=== PATIENT | male | born 1995 | race Hispanic/Latino ===

== ENCOUNTER 2017-10-31 14:52 | Outpatient (CLI) | payer OTHER | END 2017-10-31 14:53 | disposition home or self-care (01) | LOC: BICRAD 14:52 | PROVIDERS: ATTEND Internal Medicine | DX: J18.9 Pneumonia, unspecified organism (principal) | CPT/HCPCS: 36415; 71046; 80053; 81003; 85025 ==

== ENCOUNTER 2019-01-31 15:06 | Observation (INO) | payer OTHER ==
[2019-01-31] MEDS ORDERED: Lorazepam 2 MG/ML VIAL ONE (15:11)
[2019-01-31] MEDS ORDERED: cefTRIAXone\\ROCEPHIN 1 GM VIAL ONE (15:34)
[2019-01-31 15:40] LABS: Actual Bicarbonate (HCO3a) 20.1 mEq/L (22-28); Analyzer IN Cardio ER; Base Excess (BEa) -6.9 mEq/L (-2.0 to +3.0); CO2 Tension 46.2 mmHg (35.0-45.0); Calcium, Ionized 1.17 mmol/L (1.12-1.30); Carboxyhemoglobin (COHb) 0.4 gm% (0.0-3.0); Hemoglobin (Hb) 13.8 g/dL (14.0-18.0); O2 Tension (PaO2) 82.5 mmHg (80.0-100.0); Potassium - ABG Lab 3.72 mmol/L (3.70-5.30); Puncture Site RR; pH, Arterial 7.26 (7.35-7.45)
[2019-01-31 15:52] LABS: #Basophils 0.1 thou/uL (0.0-0.2); #Eosinphils 0.1 thou/uL (0.0-0.7); #Lymphocytes 1.4 thou/uL (1.20-3.40); #Monocytes 0.4 thou/uL (0.11-0.59); #Neutrophils 6.2 thou/uL (1.40-6.50); %Basophils 0.8 % (0.0-1.0); %Eosinophils 1.7 % (0.0-10.0); %Lymphocytes 17.1 % (21.0-51.0); %Monocytes 4.9 % (0.0-10.0); %Neutrophils 75.6 % (42.0-75.0); Hemoglobin 13.8 g/dL (14.0-18.0); Mean Corpuscular HGB CONC 33.7 g/dL (32.0-36.0); Mean Corpuscular Hemoglobin 34.1 pg (27.0-31.0); Mean Platelet Volume 6.8 fL (7.4-10.4); Platelet Count 187 thou/uL (130-400); RBC Distribution Width 10.7 % (11.5-14.5); Red Blood Cell (RBC) Count 4.03 mill/uL (4.70-6.10); White Blood Cell (WBC) Count 8.2 thou/uL (4.8-10.8)
[2019-01-31 16:12] LABS: ALT (SGPT) 13 U/L (8-55); AST (SGOT) 16 U/L (5-34); Albumin 4.5 g/dL (3.5-5.0); Alkaline Phosphatase 90 U/L (40-110); Anion Gap 12 mmol/L (10-20); BUN (Urea Nitrogen) 14 mg/dL (8.9-20.6); Bilirubin, Total 0.3 mg/dL (0.2-1.2); Calc. Creatinine Clearance 0 mL/min (70-130); Calcium 9.1 mg/dL (7.8-10.44); Carbon Dioxide 22 mmol/L (22-29); Chloride 109 mmol/L (98-107); Estimated GFR-MDRD 79; Globulin 3.1 g/dL (2.4-3.5); Glucose 114 mg/dL (70-105); Potassium 3.9 mmol/L (3.5-5.1); Protein, Total 7.6 g/dL (6.0-8.3); Sodium 139 mmol/L (136-145)
--- NOTE | 2019-01-31 16:13 | RAD ---
PORTABLE CHEST: 01/31/19 HISTORY: Seizure. The lung martinez are clear. No infiltrate. No evidence of vascular congestion. Heart size is normal. There are two shunt catheters overlying both sides of the neck and chest, both of which appear coiled within the abdomen. These are stable in appearance when compared to exam of 10/26/13 and are consiste nt with bilateral MAILROOM SUPERVISOR shunt catheters. An electronic device overlies the right chest and is stable in appearance. IMPRESSION: No acute lung process. POS: OFF
--- NOTE | 2019-01-31 16:41 | CT ---
CT BRAIN NONCONTRAST: DATE: 01/31/2019 HISTORY: 23 year old male with cerebral palsy presents with status post grand mal seizures COMPARISON: 07/08/2015 FINDINGS: BEATER ROOM SUPERVISOR shunt catheter entering through right frontal bur hole, traversing frontal horn of right lateral v entricle and right caudate head, with distal tip at genu of right internal capsule. Second BEATER ROOM SUPERVISOR shunt catheter entering through left parietal bur hole, with distal tip at trigone of left lateral ventricl e. Moderate to severe dilation of the posterior body and trigone of right lateral ventricle. Moderate dilation of anterior-mid portion of left ventricular body versus cyst. Dilated third ventric le. Mildly distorted fourth ventricle without significant dilation. Foramen magnum is crowded, and the bilateral foramina of Luschka and foramen of Magendie appear narrowed. No acute intra-axial or ex tra-axial hemorrhage. No midline shift. No acute calvarial findings. No gross opacification of paranasal sinuses and tympanomastoid cavities. Areas of encephalomalacia and gliosis around the ventr icles. No interval change IMPRESSION: 1. Two ventriculoperitoneal shunt catheters. 2. Distortion of ventricles, with asymmetrical areas of dilation. 3. No interval change.
[2019-01-31] MEDS ORDERED: Acetaminophen 650 MG Suppository ONE (17:15)
[2019-01-31] MEDS ORDERED: Bisacodyl 10 MG SUPP PR PRN (17:43)
[2019-01-31] MEDS ORDERED: Acetaminophen 650 MG Suppository PR PRN (17:43)
[2019-01-31] MEDS ORDERED: Acetaminophen 325 MG TAB PO PRN ×2 (17:43→18:55)
[2019-01-31 18:43] LABS: Lactic Acid 1.5 mmol/L (0.5-2.2)
[2019-01-31] MEDS ORDERED: Ondansetron ODT 4 MG TAB SL PRN (18:55)
[2019-01-31] MEDS ORDERED: Ondansetron PF 4 MG/2 ML Vial IVP PRN (18:55)
[2019-01-31] MEDS: Sodium Chloride 0.9% 1,000 ML IV SCH (19:14)
--- NOTE | 2019-01-31 19:31 | HP ---
PRIMARY CARE PHYSICIAN: At [facility]. CURRENT CHIEF COMPLAINT: Seizures. HISTORY OF PRESENT ILLNESS: Mr. Beckman is a 23-year-old who is brought to the emergency room via EMS for grand mal and petit mal seizures x3 prior to arrival. The patient's stepmom reports he has a seizure disorder, also has history of hydrocephalus and has 2 FOOTBALL PAD REPAIRER shunts, one of which is functioning and has left-sided cerebral palsy. Mother reports the patient has not had a seizure like he had today for quite some time. EMS reports giving the patient 4 mg of Ativan. Stepmom reports that the patient had pneumonia 3 weeks ago, was treated with antibiotics and she did not believe that he had any continuing symptoms. Reports that she feels like he got over the pneumonia. Does report difficulty with clearing secretions. While in the ER, the patient's lab work with initial lactic acid 2.4, subsequent one 1.5. CT scan of the brain shows two ventriculoperitoneal shunt catheters, distortion of the ventricles with asymmetrical areas of dilatation, no interval change. Lab values with chloride 109, glucose 114. White blood cell count 8.2, hemoglobin 13.8, hematocrit 40.8, and platelet count 187. Rest unremarkable. Arterial blood gas showed a pH 7.26, bicarbonate 20.1. The patient was given 650 mg rectally of Rocephin, DuoNeb, and 4 more mg of Ativan. The patient resting comfortably during exam. Although he is sedated, will respond to some commands and tries to pull away from during exam. The patient spiked fever while in the emergency room of 101.7 when Tylenol rectally was given. The patient will be admitted to the stroke unit for further evaluation. Neurology consulted. REVIEW OF SYSTEMS: History obtained with interview with stent. The patient unable to give any responses. He does have a history of seizures. Family denies fever or chills prior to arrival, although caregiver reports that he felt warm prior to having a seizure. PHYSICAL EXAMINATION: VITAL SIGNS: Blood pressure 119/86, pulse is 111, respiratory rate is 17, temp 101.7, pO2 sats are 97% on room air. GENERAL: He is currently resting on his left side. He appears nontoxic. HEENT: Head is atraumatic, normocephalic. Eyes, eyelids are normal to inspection. Pupils are equally round and reactive to light. ENT; mouth exam is normal. Mucous membranes on moist. NECK: Normal range of motion. Trachea is midline. RESPIRATORY: Chest expansion is equal. Breath sounds are clear. CARDIOVASCULAR: Regular rate and rhythm. Heart sounds are normal. ABDOMEN: Does not appear tender. There is no rigidity. No peritoneal signs. Bowel sounds are heard. BACK: Normal range of motion. No CVA tenderness on palpation. EXTREMITIES: Upper extremities; normal range of motion, radial pulses are normal. Lower extremities; normal range of motion, pedal pulses are normal. NEUROLOGIC: He is mildly sedated. Does respond to touch. PAST MEDICAL HISTORY: Hydrocephalus, epilepsy, tachy-john syndrome, cerebral palsy, mental retardation, has had a history of acute renal insufficiency from vancomycin. PAST SURGICAL HISTORY: Hernia surgery, bilateral ear tubes, tonsillectomy. Two FOOTBALL PAD REPAIRER shunts in place, one is functional, has had 13 FOOTBALL PAD REPAIRER shunt revisions. Vagal nerve stimulator implantation. PSYCHIATRIC HISTORY: Has some aggression. SOCIAL HISTORY: Lives at home with his family. No smoking history. Denies alcohol or drug use. FAMILY HISTORY: No significant family history. ASSESSMENT AND PLAN: 1. History of seizure disorder. Restart home medications. Ativan p.r.n. as needed. We will ask Neurology to consult. 2. History of hydrocephalus with FOOTBALL PAD REPAIRER shunt in place. CT scan of the brain unremarkable for any acute findings. Shuntogram was ordered due to a fever in the emergency room. Family declined. States that he had one at [email or web address] [place] 2 months ago. Does not wish to have another one. 3. Fever. Urine cultures and urinalysis have been ordered. Rocephin was started in the emergency room, we will continue this daily. Blood cultures have been drawn. Chest x-ray looks unremarkable. 4. Deep vein thrombosis with SCDs if he will wear them. Gastrointestinal prophylaxis has been started. Case was discussed with Dr. Isaac, who saw the patient and visited with family. Hospital course dependent on clinical findings. Job ID: [id number]
[2019-01-31] MEDS ORDERED: Lorazepam 1 MG TAB PO PRN (20:44)
[2019-01-31] MEDS ORDERED: Fluticasone Propionate Nasal Spray 16 gm Bottle NASAL PRN (20:45)
[2019-01-31] MEDS ORDERED: Diazepam 5 MG TAB PO SCH (21:00)
[2019-01-31] MEDS ORDERED: Zolpidem Tartrate 5 MG TAB PO PRN (21:00)
[2019-01-31] MEDS ORDERED: Loratadine 10 MG TAB PO SCH (21:00)
[2019-01-31] MEDS ORDERED: LACOSAMIDE PO SCH ×2 (21:00→23:59)
[2019-01-31] MEDS ORDERED: Mirtazapine 15 MG TAB PO SCH (21:00)
[2019-01-31] MEDS ORDERED: Melatonin 3 MG TAB PO SCH (21:00)
[2019-01-31 21:01] VITALS: BMI 19.6
[2019-01-31 21:12] LABS: Bilirubin Negative (Negative); Blood, Urine Negative (Negative); Clarity Extra Turbid (Clear); Glucose, Urine (Dipstick) Normal (Negative); Leukocyte Negative Leu/uL (Negative); Nitrite Negative (Negative); Protein, Urine (Dipstick) 10 mg/dL (Neg-Trace); Urobilinogen Normal mg/dL (Less than 2)
[2019-01-31] MEDS ORDERED: Eszopiclone [Lunesta] 3 MG PO PRN ×2 (21:31→21:45)
[2019-01-31] MEDS: Topiramate 100 MG TAB PO SCH (21:38)
[2019-01-31] MEDS: risperiDONE 1 MG TAB PO SCH (21:39)
[2019-01-31] MEDS: Famotidine/PF 20 mg/2ml Vial SLOW IVP SCH (21:39)
[2019-01-31] MEDS: cloNIDine 0.1 MG TAB PO SCH (21:40)
[2019-01-31] MEDS ORDERED: Acetaminophen 650 MG/20.3 ML UDCUP PO PRN (21:41)
[2019-01-31] MEDS ORDERED: Eszopiclone [Lunesta] 3 MG PO SCH (23:00)
[2019-01-31] MEDS: LACOSAMIDE PO SCH (23:18)
[2019-02-01 04:29] LABS: #Lymphocytes 2.3 thou/uL (1.20-3.40); #Monocytes 0.7 thou/uL (0.11-0.59); #Neutrophils 6.8 thou/uL (1.40-6.50); %Basophils 0.4 % (0.0-1.0); %Eosinophils 0.4 % (0.0-10.0); %Lymphocytes 23.2 % (21.0-51.0); %Monocytes 7.4 % (0.0-10.0); %Neutrophils 68.7 % (42.0-75.0); Hemoglobin 12.2 g/dL (14.0-18.0); Mean Corpuscular HGB CONC 34.3 g/dL (32.0-36.0); Mean Corpuscular Hemoglobin 34.3 pg (27.0-31.0); Mean Platelet Volume 6.7 fL (7.4-10.4); Platelet Count 167 thou/uL (130-400); RBC Distribution Width 10.5 % (11.5-14.5); Red Blood Cell (RBC) Count 3.56 mill/uL (4.70-6.10)
[2019-02-01 04:47] LABS: Anion Gap 10 mmol/L (10-20); BUN (Urea Nitrogen) 14 mg/dL (8.9-20.6); Calc. Creatinine Clearance 89 mL/min (70-130); Calcium 8.7 mg/dL (7.8-10.44); Carbon Dioxide 23 mmol/L (22-29); Chloride 111 mmol/L (98-107); Estimated GFR-MDRD Greater than 90; Glucose 85 mg/dL (70-105); Potassium 3.5 mmol/L (3.5-5.1); Sodium 140 mmol/L (136-145)
[2019-02-01] MEDS: LACOSAMIDE PO SCH (05:17)
[2019-02-01] MEDS ORDERED: LACOSAMIDE PO SCH (09:00)
--- NOTE | 2019-02-01 09:41 | PDOC.HOSPP ---
- Subjective Encounter Date: 02/01/19 Encounter Time: 09:20 Subjective: f/u s/p grand mal seizure currently stable per family report. No fever noted per nursing. More awake this am but not back to baseline currently. Received Tetanus/Influenza immunizations within the last 3 weeks. - Objective Vital Signs & Weight: Vital Signs (12 hours) Temp Pulse Resp BP BP BP Pulse Ox 02/01/19 07:00 98.4 F 88 16 121/72 96 02/01/19 03:15 98.1 F 88 14 99/50 L 91 L 01/31/19 23:55 98.6 F 81 14 102/57 L 96 01/31/19 21:40 120/85 Weight Weight 118 lb Result Diagrams: 02/01/19 04:15 02/01/19 04:15 Additional Labs: Microbiology 01/31/19 16:07 Venous blood - Right Hand Blood Culture - Preliminary Specimen has been received and culture in progress. No Growth to date. 01/31/19 15:42 Venous blood - Right Arm Blood Culture - Preliminary Specimen has been received and culture in progress. No Growth to date. Laboratory Tests 01/31/19 01/31/19 15:42 18:16 Lactic Acid 2.4 H 1.5 Radiology Reviewed by me: Yes (CT brain - no acute process, TEST MANAGER shunt catheters in place) EKG Reviewed by me: Yes (Tele - SR) Hospitalist ROS - Medication Medications: Active Medications Generic Name Dose Route Start Last Admin Trade Name Freq PRN Reason Stop Dose Admin Clonidine 0.05 mg 01/31/19 21:00 01/31/19 21:40 Catapres PO 0.05 mg BID NATALI Administration Diazepam 10 mg 01/31/19 21:00 01/31/19 23:17 Valium PO 10 mg HS NATALI Administration Famotidine 20 mg 01/31/19 21:00 01/31/19 21:39 Pepcid SLOW IVP 20 mg Q12HR NATALI Administration Sodium Chloride 1,000 mls @ 75 mls/hr 01/31/19 17:45 01/31/19 19:14 Normal Saline 0.9% IV 1,000 mls .[id number] NATALI Administration Loratadine 10 mg 01/31/19 21:00 01/31/19 21:40 Claritin PO Not Given HS NATALI Melatonin 3 mg 01/31/19 21:00 01/31/19 23:18 Melatonin PO 3 mg HS NATALI Administration Mirtazapine 7.5 mg 01/31/19 21:00 01/31/19 21:40 Remeron PO 7.5 mg HS NATALI Administration Risperidone 4 mg 01/31/19 21:00 01/31/19 21:39 Risperidone PO 4 mg BID NATALI Administration Sodium Chloride 10 ml 01/31/19 21:00 01/31/19 21:43 Flush - Normal Saline IVF 10 ml Q12HR NATALI Administration Topiramate 200 mg 01/31/19 21:00 01/31/19 21:38 Topamax PO 200 mg BID NATALI Administration - Exam General Appearance: NAD General - other findings: awake, drinks independently using straw Eye: PERRL, anicteric sclera ENT: normocephalic atraumatic, no oropharyngeal lesions Neck: supple, symmetric, no JVD, no thyromegaly Heart: RRR, no murmur, no gallops, no rubs, normal peripheral pulses Respiratory: CTAB, no wheezes, no rales, no ronchi Gastrointestinal: soft, non-tender, non-distended, normal bowel sounds, no palpable masses Extremities: no cyanosis, no clubbing, no edema Skin: normal turgor, no lesions Neurological - other findings: non-verbal Psychiatric: oriented to person Hosp A/P (1) Recurrent seizures Code(s): G40.909 - EPILEPSY, UNSP, NOT INTRACTABLE, WITHOUT STATUS EPILEPTICUS Status: Acute Plan: Resume home Vimpat/Diazepam, Neurology consult pending, no focal infectious process identified but continuing empiric Rocephin (2) Epilepsy Code(s): G40.909 - EPILEPSY, UNSP, NOT INTRACTABLE, WITHOUT STATUS EPILEPTICUS Status: Chronic Plan: See above #1 (3) Cerebral palsy Code(s): G80.9 - CEREBRAL PALSY, UNSPECIFIED Status: Chronic Plan: Continue home medication regimen, family/caregiver for supportive mgmt at bedside (4) Febrile convulsion Code(s): R56.00 - SIMPLE FEBRILE CONVULSIONS Status: Acute Plan: No fever recurrence currently, monitor trend, continue empiric Rocephin, await final Ucx results - Plan plan discussed w/ family, continue antibiotics, psychosocial rehabilitation counselor, DVT proph w/ SCDs Continue supportive mgmt IV Ativan for breakthrough seizures Resume home Vimpat/Diazepam Await final Ucx results Continue Rocephin Neurology consult pending Likely home in 24h
[2019-02-01] MEDS: Sodium Chloride 0.9% 1,000 ML IV SCH (10:04)
[2019-02-01] MEDS: Famotidine/PF 20 mg/2ml Vial SLOW IVP SCH (10:05)
[2019-02-01] MEDS: risperiDONE 1 MG TAB PO SCH (10:06)
[2019-02-01] MEDS: Topiramate 100 MG TAB PO SCH (10:07)
[2019-02-01] MEDS: cloNIDine 0.1 MG TAB PO SCH (10:07)
[2019-02-01] MEDS ORDERED: Valproate Sodium 500 MG in Sodium Chloride 0.9% 100 ML IVPB SCH (10:15)
--- NOTE | 2019-02-01 12:20 | CON ---
DATE OF TELEMEDICINE CONSULTATION: CHIEF COMPLAINT: Seizure. HISTORY OF PRESENT ILLNESS: History was given by his family. The patient has cerebral palsy with onset in childhood, and he is being managed by Dr. Michael Tilley through [facility]. The patient spits out tablets; therefore , he is on liquid Vimpat at 23 mL per day. The patient has petit mal seizures, and the last grand mal seizures were 5 to 6 years ago, and he had a series of seizures; therefore, parents brought him into the hospital. The patient has history of hydrocephalus, 2 TRANSPORT NURSE shunts, and at baseline, he can walk on his own without any assistive devices. He parrots a few words, but mostly, his speech is gibberish. He needs supervision even while feeding himself. He had a pneumonia 3 weeks ago and was treated with antibiotics, and the patient was brought in for seizures. His temperature was 101.7 in the ER. At this time, further workup is ongoing. PREVIOUS MEDICAL HISTORY: Cerebral palsy, generalized tonic-clonic and petit mal seizures, hydrocephalus, known epilepsy, tachycardia-bradycardia syndrome, and acute renal insufficiency. SURGICAL HISTORY: TRANSPORT NURSE shunt placement and hernia surgery. REVIEW OF SYSTEMS: Unobtainable. SOCIAL HISTORY: He lives with his parents. Nonsmoking. No alcohol. He is full care. LABORATORY WORKUP: White count 10.0, hemoglobin 12.2, hematocrit 35.6, platelet count 167. Sodium 140, potassium 3.5, chloride 111, bicarb 23, BUN 14, creatinine 0.99. Lactic acid 2.4 yesterday. Calcium 8.7. Urinalysis; his urine is negative for any leukocyte esterase. IMAGING STUDIES: His brain CT was completed. The patient has 2 TRANSPORT NURSE shunt catheters, distortion of ventricles with asymmetrical areas of dilatation, and no interval change since the previous CT. PHYSICAL EXAMINATION: VITAL SIGNS: Temperature 98.4, pulse 88, respiratory rate 16, blood pressure 121/72. GENERAL APPEARANCE: Very pleasant, comfortable, and lying in bed. He is not able to talk. CARDIAC: S1 and S2 heard. No murmurs. ABDOMEN: Soft. NEUROLOGIC: The patient is awake, interacting with his family, and is moving his extremities. We are unable to perform a detailed neuro exam due to lack of understanding from the patient due to cognitive status of the patient. Deep tendon reflexes 2+ throughout. IMPRESSION AND RECOMMENDATIONS: The patient is a 23-year-old young man with cerebral palsy. He is well cared for by his family, and he has had seizure disorder for a number of years, at least since 1998. He also had TRANSPORT NURSE shunt placement in the past. He is currently managed with Vimpat, Topamax, and Valium at home. Dr. Tilley is his primary neurologist. At this time, I think we can add Depakote as an additional measure to control seizures. I will start him on sodium valproate 500 mg once, and then we can switch him to Depakene liquid 250 mg twice daily in order to add additional protection for his seizure control. The patient can follow up with Dr. Tilley. Job ID: [id number] MTDD
[2019-02-01] MEDS ORDERED: cefTRIAXone\\ROCEPHIN 1 GM in Sodium Chloride 0.9% 100 ML IVPB SCH (15:00)
[2019-02-01 15:59] VITALS: BP 110/87; TEMP 98.3
--- NOTE | 2019-02-01 19:35 | DIS ---
DATE OF ADMISSION: 01/31/2019 DATE OF DISCHARGE: 02/01/2019 DISCHARGE DIAGNOSES: 1. Recurrent seizures. 2. Epilepsy. 3. Cerebral palsy, chronic. 4. Febrile convulsion. CONSULTATIONS: Dr. Ely Wayne with Neurology Service. PERTINENT LABORATORY AND X-RAY FINDINGS: Basic metabolic profile within normal limits. Lactic acid level ranged between 1.5 to 2.4. CBC showed a white blood cell count ranging between 8.2 to 10.0, hemoglobin ranged between 12.2 to 13.8. MCV 101. Blood cultures x2 dated 01/31/2019, showed no growth to date. Urine culture dated 01/31/2019, showed no growth at 12 hours. Portable chest x-ray dated 01/31/2019, showed no acute cardiopulmonary process. CT of the brain without contrast dated 01/31/2019, showed two ventriculoperitoneal shunt catheters in appropriate positioning. No interval change when compared to previous CT imaging of the brain. HOSPITAL COURSE: The patient was observed on the Stroke Unit after initially presenting with recurrent seizures in the context of chronic seizure disorder and epilepsy. The patient was aggressively managed with IV Ativan in addition to diazepam and rectal Tylenol. The patient clinically stabilized with benzodiazepine administration and was evaluated by the Neurology Service. The patient was placed on valproic acid as a new agent in addition to Vimpat and diazepam for seizure management. The patient's ventriculoperitoneal shunts were noted on CT imaging and a shuntogram was recommended; however, the family did not want to pursue evaluation of the shunts at this time. The patient underwent general sepsis and infectious rule out without evidence of focal infectious process with negative blood and urine culture. The patient did receive empiric antibiotics with Rocephin, however, these were discontinued after cultures were negative. The patient clinically stabilized with supportive management and at baseline functional status. I have examined the patient at time of discharge and discussed followup instructions. Family verbalized understanding and in agreement, ready for discharge on 02/01/2019. DISCHARGE MEDICATIONS: 1. Zyrtec 10 mg at bedtime. 2. Catapres 0.1 mg half a tablet p.o. b.i.d. 3. Clonidine one patch transdermally q.7 days. 4. Diazepam 5 to 15 mg p.o. at bedtime p.r.n. seizure activity. 5. Lunesta 3 mg p.o. at bedtime. 6. Flonase 1 to 2 sprays in each naris at bedtime p.r.n. 7. Vimpat 10 mg/mL 23 mL p.o. b.i.d. 8. Ativan 1 mg p.o. p.r.n. seizure activity. 9. Melatonin 20 mg p.o. at bedtime. 10. Remeron 7.5 mg p.o. at bedtime. 11. Risperdal 4 mg p.o. b.i.d. 12. Topamax 200 mg p.o. b.i.d. 13. Valproic acid 250 mg p.o. b.i.d. FOLLOWUP: The patient to follow up with [facility], Dr. Antoine. CONDITION ON DISCHARGE: Fair. ACTIVITY: Ad-cam. DIET: Regular with pureed texture. CODE STATUS: Full. DISPOSITION: Home on 02/01/2019. Job ID: [id number]
[2019-02-01] MEDS ORDERED: Valproate Sodium 250 mg/5 ml UD Cup PO SCH (21:00)
[2019-02-07] MEDS ORDERED: cloNIDine 0.2mg/24 Hour PATCH TD SCH (09:00)
== END 2019-02-01 16:30 | disposition home or self-care (01) ==
LOC: ERS 15:06 → 2SE 19:19
PROVIDERS: ADMIT Internal Medicine; ATTEND Internal Medicine
DX: G40.409 Other generalized epilepsy and epileptic syndromes, not intractable, without status epilepticus (principal); G91.9 Hydrocephalus, unspecified; G80.9 Cerebral palsy, unspecified; F79 Unspecified intellectual disabilities; I49.5 Sick sinus syndrome; Z79.899 Other long term (current) drug therapy; Z88.0 Allergy status to penicillin; Z88.1 Allergy status to other antibiotic agents; Z88.8 Allergy status to other drugs, medicaments and biological substances; Z98.2 Presence of cerebrospinal fluid drainage device
CPT/HCPCS: 36415; 70450; 71045; 80048; 80053; 81003; 82805; 83605; 85025; 87040; 87077; 87086; 94640; 96361; 96365; 96367; 96375; G0378; J0696; J2060; J3490; J7620; S0028

== ENCOUNTER 2019-04-15 17:48 | Inpatient (IN) | payer OTHER ==
[2019-04-15] MEDS ORDERED: Fentanyl 100 MCG/2 ML VIAL ONE (18:00)
[2019-04-15 18:19] LABS: Actual Bicarbonate (HCO3a) 12.4 mEq/L (22-28); Analyzer IN Cardio ER; Base Excess (BEa) -11.7 mEq/L (-2.0 to +3.0); Calcium, Ionized 1.11 mmol/L (1.12-1.30); Hemoglobin (Hb) 13.7 g/dL (14.0-18.0); O2 Tension (PaO2) 337.7 mmHg (80.0-100.0); Potassium - ABG Lab 2.88 mmol/L (3.70-5.30); pH, Arterial 7.33 (7.35-7.45)
[2019-04-15] MEDS ORDERED: fentaNYL Citrate/PF 2,000 MCG in Sodium Chloride 0.9% 60 ML IV SCH (18:19)
[2019-04-15 18:23] LABS: CO2 Tension 24.4 mmHg (35.0-45.0)
[2019-04-15 18:24] LABS: Puncture Site RBA
--- NOTE | 2019-04-15 18:28 | RAD ---
Chest AP view INDICATION: Choked on hot dog COMPARISON: January 31, 2019 FINDINGS: Lungs:The lungs are clear Cardiac silhouette:The cardiomediastinal silhouette appears within normal limits. Pulmonary vasculature:Normal Pleural spaces:No pleural effusion or pneumothorax is demonstrated. Upper abdomen:Gastric catheter projects in the region of the gastric fundus. Ventriculoperitoneal david nt catheter is unchanged. Left carotid body stimulator is unchanged. Osseous structures: No acute osseous abnormality. Additional findings:None. IMPRESSION: No acute cardiopulmonary abnormality. Gastric catheter placement.
[2019-04-15 18:29] LABS: Hemoglobin 14.3 g/dL (14.0-18.0); Mean Corpuscular HGB CONC 33.9 g/dL (32.0-36.0); Mean Corpuscular Hemoglobin 35.2 pg (27.0-31.0); RBC Distribution Width 11.2 % (11.5-14.5); Red Blood Cell (RBC) Count 4.06 mill/uL (4.70-6.10); White Blood Cell (WBC) Count 11.3 thou/uL (4.8-10.8)
[2019-04-15 18:36] LABS: ALT (SGPT) 348 U/L (8-55); AST (SGOT) 400 U/L (5-34); Albumin 3.6 g/dL (3.5-5.0); Alkaline Phosphatase 117 U/L (40-110); Anion Gap 19 mmol/L (10-20); BUN (Urea Nitrogen) 17 mg/dL (8.9-20.6); Bilirubin, Total 0.2 mg/dL (0.2-1.2); Calc. Creatinine Clearance 0 mL/min (70-130); Calcium 7.9 mg/dL (7.8-10.44); Carbon Dioxide 11 mmol/L (22-29); Chloride 111 mmol/L (98-107); Estimated GFR-MDRD 78; Globulin 3.2 g/dL (2.4-3.5); Glucose 243 mg/dL (70-105); Potassium 3.5 mmol/L (3.5-5.1); Protein, Total 6.8 g/dL (6.0-8.3); Sodium 137 mmol/L (136-145)
[2019-04-15] MEDS ORDERED: Lorazepam 2 MG/ML VIAL ONE (18:44)
[2019-04-15 18:46] LABS: Band 5 % (5-11); Eosinophils 1 % (0-10); Lymphocytes 48 % (21-51); MDiff Complete? YES; Mean Platelet Volume 10.9 fL (7.4-10.4); Monocytes 5 % (0-10); Neutrophil 38 % (42-75); Platelet Clumps SLIGHT; Platelet Count 33 thou/uL (130-400); Platelet Morphology Comment Appears Decreased; RBC Morphology Normal; Reactive Lymphocytes 3 % (0-10)
[2019-04-15 19:38] LABS: Carbamazepine-Tegretol Less than 1.9 ug/mL (4.0-12.0)
--- NOTE | 2019-04-15 20:02 | CT ---
CT Brain WO Con: 04/15/2019 6:24 PM CLINICAL HISTORY: History of choking, cardiac arrest. IMAGING TECHNIQUE: Multiple CT images were obtained of the brain without IV contrast. COMPARISON: CT the brain without contrast dated January 31, 2019 FINDINGS: Brain: No acute infarct or hemorrhage is evident. No midline shift. Ventricles: There is stable moderate prominence of the lateral ventricles and third ventricle. Ventri culoperitoneal shunt catheter entering through left parietal bore hole and projecting into the left lateral ventricular trigone is stable.. Right frontal DEVELOPMENT ENGINEER shunt catheter with its tip projecting in th e region of the genu of the right internal capsule is stable appearing. The fractured tubing of the right frontal shunt catheter is stable appearing. Visualized aspects of the tubing involving the left parietal DEVELOPMENT ENGINEER shunt catheter appear intact. Skull: Intact. Visualized Paranasal sinuses: Clear. Mastoid air cells:Clear. Extracranial soft tissues:Normal. IMPRESSION: No acute intracranial abnormality.
--- NOTE | 2019-04-15 20:13 | PDOC.FPRHP ---
- History of Present Illness Chief Complaint: respiratory arrest History of Present Illness: History obtained from family at bedside as well as ERMD and documentation. 24yo male with h/o CP, hydrocephalus, epilepsy, and tachy john syndrome who was at usual state of health earlier in day presented for respiratory arrest and ROSC. Parents state he was being watched by caregiver. Caregiver stepped away and patient tried to eat a hot dog. Caregiver returned and noticed he was unresponsive. Immediately began CPR and called EMS. EMS arrived and continued CPR. Per report 10 total minutes of CPR with 2 rounds epi given. EMS tried to remove hot dog from airway and intubated patient. ROSC at scene. Transported to [facility]. In ED, report given was patient was unresponsive on initial exam, then later began to fight vent, started on fentanyl gtt. ED physician also noted L- sided "twitching," Given Ativan with resolution. ED Course: 1mg Ativan. 2L NS. Fentanyl gtt. CXR. Head CT. - Allergies/Adverse Reactions Allergies Allergy/AdvReac Type Severity Reaction Status Date / Time amoxicillin [Amoxicillin] Allergy Verified 04/15/19 21:20 Penicillins Allergy Verified 04/15/19 21:20 phenytoin [From Dilantin] Allergy Verified 04/15/19 21:20 vancomycin Allergy Verified 04/15/19 21:20 - Home Medications Medication Instructions Recorded Confirmed Type Lacosamide [Vimpat Oral Solution] 23 ml PO BID 01/12/13 04/15/19 History Lorazepam [Ativan] 1 mg PO PRN PRN 10/26/13 04/15/19 History cloNIDine [Catapres] 0.5 tab PO BID 10/26/13 04/15/19 History Cetirizine HCl [Zyrtec] 10 mg PO HS 01/31/19 04/15/19 History Diazepam 5 - 15 mg PO PRN PRN MDD 30mg @HS 01/31/19 04/15/19 History Diazepam [Valium] 10 mg PO HS 01/31/19 04/15/19 History Eszopiclone [Lunesta] 3 mg PO HS 01/31/19 04/15/19 History Fluticasone Propionate [Flonase 1 - 2 spray EA NARE HS PRN 01/31/19 04/15/19 History Allergy Relief] Melatonin 10 tab PO HS 01/31/19 04/15/19 History Mirtazapine [Remeron] 15 mg PO HS 01/31/19 04/15/19 History Topiramate [Topamax] 200 mg PO BID 01/31/19 04/15/19 History cloNIDine [Clonidine] 1 patch TD [id number] 01/31/19 04/15/19 History risperiDONE 3 tab PO BID 01/31/19 04/15/19 History Valproate Sodium [Valproate Sodium 250 mg PO BID 04/15/19 04/15/19 History Oral Solution] - History PMHx: CP, epilepsy, hydrocephalus, tachy/john PSHx: EMPLOYMENT OFFICE CLERK shunt x2 with 13 revisions, gastrochisis repair as , vagal nerve stimulator FHx: noncontributory Social: Lives with parents. - Review of Systems ROS unobtainable: due to endotracheal tube - Vital signs BP: 148/100 HR: 140 RR: 12 Tmax: 94.3 Pox: 100% on Vent Wt: 54.9 - Physical Exam Constitutional: other (intubated, sedated) HEENT: no scleral icterus, normal nasal mucosa, other (ETT in place. MMM. Pupils pinpoint but reactive to light.) Neck: supple, trachea midline Heart: RRR, normal S1/S2, no murmurs/rubs/gallops, pulses present, no edema Lungs: CTAB, no respiratory distress, good air movement, no rales/rhonchi, no wheezing Abdomen: soft, bowel sounds present Skin: no rash/lesions, good turgor Heme/Lymphatic: no unusual bruising or bleeding Additional comment: Giles in place, straw colored urine FMR H&P: Results - Labs Result Diagrams: 04/15/19 18:06 04/15/19 18:06 Lab results: WBC 11.3 thou/uL (4.8-10.8) H 04/15/19 18:06 Hgb 14.3 g/dL (14.0-18.0) 04/15/19 18:06 Hct 42.2 % (42.0-52.0) 04/15/19 18:06 MCV 104.0 fL (78.0-98.0) H 04/15/19 18:06 Plt Count 33 thou/uL (130-400) L 04/15/19 18:06 Band Neuts % (Manual) 5 % (5-11) 04/15/19 18:06 ABG pH 7.33 (7.35-7.45) L 04/15/19 18:15 ABG pCO2 24.4 mmHg (35.0-45.0) L* 04/15/19 18:15 ABG pO2 337.7 mmHg (80.0-100.0) H 04/15/19 18:15 Sodium 137 mmol/L (136-145) 04/15/19 18:06 Potassium 3.5 mmol/L (3.5-5.1) 04/15/19 18:06 Chloride 111 mmol/L (98-107) H 04/15/19 18:06 Carbon Dioxide 11 mmol/L (22-29) L 04/15/19 18:06 BUN 17 mg/dL (8.9-20.6) 04/15/19 18:06 Creatinine 1.17 mg/dL (0.7-1.3) 04/15/19 18:06 Glucose 243 mg/dL (70-105) H 04/15/19 18:06 Lactic Acid 7.5 mmol/L (0.5-2.2) H* 04/15/19 18:30 Calcium 7.9 mg/dL (7.8-10.44) 04/15/19 18:06 Total Bilirubin 0.2 mg/dL (0.2-1.2) 04/15/19 18:06 AST 400 U/L (5-34) H 04/15/19 18:06 ALT 348 U/L (8-55) H 04/15/19 18:06 Alkaline Phosphatase 117 U/L (40-110) H 04/15/19 18:06 Serum Total Protein 6.8 g/dL (6.0-8.3) 04/15/19 18:06 Albumin 3.6 g/dL (3.5-5.0) 04/15/19 18:06 - Radiology Interpretation CT scan - head Status: report reviewed by me (no acute intracranial process) Chest x-ray Status: report reviewed by me (no acute CPP) FMR H&P: A/P - Problem List (1) Respiratory arrest Current Visit: Yes Status: Acute Code(s): R09.2 - RESPIRATORY ARREST (2) Recurrent seizures Current Visit: Yes Status: Suspected Code(s): G40.909 - EPILEPSY, UNSP, NOT INTRACTABLE, WITHOUT STATUS EPILEPTICUS (3) Cerebral palsy Current Visit: Yes Status: Chronic Code(s): G80.9 - CEREBRAL PALSY, UNSPECIFIED (4) Epilepsy Current Visit: Yes Status: Chronic Code(s): G40.909 - EPILEPSY, UNSP, NOT INTRACTABLE, WITHOUT STATUS EPILEPTICUS - Plan 24yo male with h/o CP, hydrocephalus, epilepsy, and tachy john syndrome who was at usual state of health earlier in day presented for respiratory arrest and ROSC. #Respiratory arrest s/p ROSC - 10min arrest per EMS, 2 rounds epi, intubated and ROSC on scene - 2/2 foreign body aspiration, hot dog, and airway obstruction - On sedation protocol - Admit to ICU on ventilator - Consult pulmonology, Dr. Dykes, apprec recs - Will cover with Unasyn for aspiration PNA ppx, has allergy to PNC but upon further questioning allergy was diarrhea, so thus side effect and no true allergy - Bronch by Dr. Dykes demonstrated no foreign body in airway #Seizure vs myoclonic jerking - known underlying seizure disorder with CP - concern for underlying, uncontrolled seizure vs myoclonic jerking from anoxic brain injury - Pulm rec continuous EEG for determination, unable to obtain at [facility] - Will begin transfer process to [facility] vs [facility] for EEG monitoring and further management - Pulm rec loading Keppra dose - Will cont home seizure meds of Depakote and Vimpat adjusted for IV dosing - Will check depakote lv - Ativan prn, seizure precautions and neuro checks #Transaminitis, suspected shock liver - AST/ALT 400/348 - records reviewed and new elevation - likely 2/2 respiratory arrest, CPR, and ROSC - Will cont on IVF and monitor - could be 2/2 depakote SE, will monitor labs #Thrombocytopenia - Plt 33 - holding VTE ppx 2/2 to - could be 2/2 depakote SE, newer medication per family - will monitor and trend labs, consider further workup pending trend #CP - baseline mentation of 4yo per family - will monitor, holding sedating home meds for now Code: Full PCP: [facility] - Dr. Vargas Diet: NPO IVF: LR @100cc/hr VTE: SCDs - pharm contraindicated 2/2 thombocytopenia - Giles in place Disposition/LOS: Admit to ICU s/p respiratory arrest now ROSC and intubated. Pulm consulted, apprec recs. Plan for transfer for continuous EEG monitoring. FMR H&P: Upper Level - Pertinent history 24 year old male presents with respiratory arrest s/p ROSC after aspiration of hot dog just prior to arrival. chief engineer's helper witnessed aspiration of hot dog and subsequent respiratory arrest. She immediately started CPR and called EMS. When EMS arrived they were able to retrieve part of the hot dog but state they may have pushed another portion further into the airway. Patient had approximately 10 minutes of CPR and 2 rounds of epi prior to ROSC. Patient has history of cerebral palsy with left sided deficits. He also has a history of tachybrady syndrome and seizure disorder. Parents report that he was fine prior to these events. He has been having twitching motions since intubation and was given 1 mg of Ativan for presumed seizures. - Pertinent findings General: Sedated on ventilator. HEENT: MMM, pinpoint pupils, reactive to light Card: RRR, No appreciable murmur Resp: CTA, on ventilator Abdomen: Soft, positive bowel sounds Ext: No cyanosis or edema Neuro: Unable to adequately assess given sedation/ventilation, but jerking motions detected. Uncertain if represents seizure vs. myclonic jerking associated with anoxic brain injury - Plan Date/Time: 04/15/192011 I, Pat Patel, have evaluated this patient and agree with findings/plan as outlined by international account manager resident. Pertinent changes/additions are listed here. Respiratory arrest 2/2 aspiration w/ obstruction s/p ROSC -Immediate initiation of CPR, for total of 10 minutes -Removal of foreign body from airway (hot dog), with possibility of additional parts of hot dog further down -Pulmonology consulted (Dr. Dykes); appreciate recs -Bronch performed to evaluate for any further obstruction in airway; airway clear -Patient sedated and on ventilator -CXR neg -Will start patient on Unasyn given aspiration Myoclonic jerking vs. recurrent seizures/status epilepticus -Patient does have known history of seizure disorder -Unable to obtain EEG in the middle of the night and no way to do continuous EEG monitoring to know if seizures stop (if they do happen to be seizures); Recommended transfer to [facility] for continuous EEG monitoring since we do not have a clear history of seizures vs. myoclonic jerking from anoxic brain injury and we do not have Neurologist in middle of night -Transfer was initiated after discussion with patient's parents by Dr. Dykes; transfer later declined as patient's parents opted against transfer. They discussed with our attending physician. Will try for EEG in AM. In the meantime , we have loaded with Keppra and started patient on all of his home medications for seizures. Patient subtherapeutic for all home seizure medications. Seizure disorder -Subtherapeutic with depakote -Loaded with Keppra and started on seizure medications Transaminitis -Likely 2/2 shock liver from respiratory and cardiovascular arrest -Continue to trend -Consider further studies if no improvement -Checked valproic acid level as elevations can cause transaminitis, but level low Thrombocytopenia -Patient seen back in Nov and platelets normal -Appear the maybe platelets artificially low due to clumping -Repeat with AM labs, consider using blue top with anticoagulant if still low and clumping -Hold lovenox Cerebral Palsy -Mentation of 4 year old at baseline -Will hold meds for agitation given current status DVT ppx: SCD's (thrombocytopenia) GI ppx: Pepcid Code status: DNR; discussion with family by Dr. Bangura Dispo: Admit to ICU. Consulted Pulm. Anticipate LOS >48 hours. Addendum - Attending - Attending Attestation Date/Time: 04/15/19 [id number] I personally evaluated the patient and discussed the management with Dr. Patel Ortiz I agree with the History, Examination, Assessment and Plan documented above with any addition or exceptions noted below- 24 yo male with h/o CP, hydrocephalus s/p EMPLOYMENT OFFICE CLERK shunt, seizure disorder, and tachy-john syndrome presented via EMS after cardiac arrest at home. Patient choked on a hotdog and became unresponsive. Caregiveer immediately started CPR and contacted EMS. EMS arrived and continued CPR, epi given x 2 and intubated in the field. ROSC achieved after about 10 minutes. Initially unresponsive in ER but then beginning fighting the vent and was started on fentanyl. Also noted by ER physician to have left sided twitching. PMH/PSH/Meds/SH reviewed and agree with resident's documentation. T95.2 P96 BP 116/80 RR22 Pupils not reactive, Lungs- CTA b/l, CV- RRR, no murmur, Abd- soft, nt/nd, Ext- no edema, Neuro- jerking of left side of body Labs: WBC=11.3, H/H=14.3/42.2, Plt=33, Af=798, K= 3.5, Mj=145, CO2=11, BUN/Cr=17/1.17, Ayns=371, lactic acid=7.5, AST/YQJ=667/348 , alk dzqm=840, valproic acid=43.8, CT brain- no acute abnormality; anterior EMPLOYMENT OFFICE CLERK shunt fractured, posterior shunt- intact. A/P: 1) s/p cardiac arrest with ROSC - Admit to ICU. Continue vent support. BP stable on no pressors. Continue IVF. Monitor I/Os. 2) Seizure d/o - continue home meds. 3) Transaminitis probbale shock liver- continue to monitor; repeat labs in AM.
[2019-04-15] MEDS ORDERED: Acetaminophen 325 MG TAB PO PRN (20:38)
[2019-04-15] MEDS ORDERED: Sodium Chloride 0.9% 1,000 ML IV SCH (20:38)
[2019-04-15] MEDS ORDERED: Ondansetron PF 4 MG/2 ML Vial IVP PRN (20:38)
[2019-04-15] MEDS ORDERED: Ondansetron ODT 4 MG TAB SL PRN (20:38)
[2019-04-15] MEDS ORDERED: Ventilator Sedation Protocol 1 EACH FS SCH (21:19)
[2019-04-15] MEDS ORDERED: CCU Electrolyte Replacement 1 EACH IVPB ONE (21:19)
[2019-04-15] MEDS ORDERED: Morphine 2 MG/ML SYRINGE SLOW IVP PRN (21:23)
[2019-04-15] MEDS ORDERED: DISCONTINUE PREVIOUS NARCOTIC PAIN MEDICATIONS AND BENZODIAZEPINES FS SCH (21:23)
[2019-04-15] MEDS ORDERED: Fentanyl BOLUS 250 ML IVPB PRN (21:23)
[2019-04-15] MEDS ORDERED: Propofol BOLUS 1,000 MG/100 ML VIAL IV PRN (21:23)
[2019-04-15] MEDS ORDERED: Potassium Chloride 20 MEQ TAB PO PRN (21:25)
[2019-04-15] MEDS ORDERED: Potassium Phosphate 9 MMOL in Sodium Chloride 0.9% 100 ML IVPB PRN (21:25)
[2019-04-15] MEDS ORDERED: Magnesium Oxide 400 MG TAB PO PRN ×2 (21:25)
[2019-04-15] MEDS ORDERED: PHOS-NAK 1 PKT PACK PO PRN ×2 (21:25)
[2019-04-15] MEDS ORDERED: Potassium Phosphate 12 MMOL in Sodium Chloride 0.9% 250 ML 250 ML IV PRN (21:25)
[2019-04-15] MEDS ORDERED: Potassium Chloride 40 MEQ in Premix Bag 1 BAG IVPB PRN (21:25)
[2019-04-15] MEDS ORDERED: Potassium Chloride 40 MEQ in Sodium Chloride 0.9% 250 ML 250 ML IVPB PRN (21:25)
[2019-04-15] MEDS ORDERED: Potassium Phosphate 15 MMOL in Sodium Chloride 0.9% 250 ML 250 ML IV PRN (21:25)
[2019-04-15] MEDS ORDERED: CCU ELECTROLYTE REPLACEMENT PROTOCOL FS PRN (21:25)
[2019-04-15] MEDS ORDERED: Famotidine/PF 20 mg/2ml Vial SLOW IVP SCH (21:30)
[2019-04-15 21:49] LABS: Lactic Acid 3.2 mmol/L (0.5-2.2)
[2019-04-15] MEDS: Propofol 1,000 MG/100 ML VIAL IV PRN (22:04)
[2019-04-15] MEDS: Lorazepam 2 MG/ML VIAL SLOW IVP PRN (22:22)
[2019-04-15] MEDS: Lactated Ringer's 1,000 ML IV SCH (22:22)
[2019-04-15] MEDS ORDERED: LEVETIRACETAM IVPB SCH (22:30)
[2019-04-15] MEDS ORDERED: SODIUM CHLORIDE IVPB SCH (22:30)
[2019-04-15] MEDS ORDERED: ADMIXTURE FEE IVPB SCH (22:30)
[2019-04-15 22:41] LABS: Troponin I 0.359 ng/mL (< 0.028)
[2019-04-15] MEDS: Ampicillin/Sulbactam 1.5 GM in Sodium Chloride 0.9% 100 ML IVPB SCH (22:44)
[2019-04-16] MEDS: SODIUM CHLORIDE 0.9% IVPB SCH ×2 (00:01→13:48)
[2019-04-16] MEDS: LACOSAMIDE IVPB SCH ×2 (00:01→13:48)
--- NOTE | 2019-04-16 00:21 | PDOC.EVN ---
Event Note - Event Note Event Note: Asked to speak with family by nursing. Family asked about need for transfer. Discussed need for EEG to differentiate current abnormal movements from myoclonic jerks which could be indicative of anoxic brain injury due to the cardiac arrest which versus seizures which could then be treated more aggressively to allow time for healing/recover. All questions answered for family. After discussion, family declines transfer and understands that in the event the abnormal movements are seizures that delay in treatment may affect outcome. Also discussed family's wishes in the event of another cardiac arrest. After discussion, father and mother- Lui Beckman requested no resuscitative efforts be made including no chest compressions, medications or shock. Resuscitation order changed to DNAR.
--- NOTE | 2019-04-16 02:03 | CON ---
DATE OF CONSULTATION: 04/15/2019 SERVICE: Pulmonary Medicine. REASON FOR CONSULTATION: ICU patient. HISTORY OF PRESENT ILLNESS: The patient is a 24-year-old white male with past medical history significant for seizure disorder, and cerebral palsy. He has a very extensive neurologic history. That being said, at baseline he is able to walk and communicate in his own way. He was eating dinner this evening when he had a hot dog. Apparently got choked up on the hot dog, and went completely listless. He was pulseless, and chest compressions were initiated by care provider immediately. After EMS Services were contacted and they got out to his house, his airway was established. There was a hot dog in the posterior oropharynx, which may have been pushed down into the trachea. Either way, his saturations improved once airway was established. He has gone through a little bit of a workup. That being said, after he got up to the ICU, he started to demonstrate myoclonic jerking spells. The family is saying that these are distinctly different than his seizure activity. The patient certainly can't provide me with any history. Prior to this event, he was in his usual state of health. PAST MEDICAL HISTORY: 1. Cerebral palsy. 2. Seizure disorder. 3. Mental retardation. 4. Tachy-john syndrome. 5. History of hydrocephalus. PAST SURGICAL HISTORY: 1. Herniorrhaphy. 2. Tympanoplasty. 3. Tonsillectomy. 4. INFANTRY INDIRECT FIRE CREWMEMBER shunt x2 with over 13 shunt revisions previously. 5. Vagal nerve stimulator implantation. SOCIAL HISTORY: Negative for alcohol, tobacco, or illicit drug use. Lives at home with family. His father is his um nurse. FAMILY HISTORY: Noncontributory. ALLERGIES: 1. PENICILLIN. 2. PHENYTOIN. 3. VANCOMYCIN. MEDICATIONS: List of his inpatient medications was reviewed. No specific updates were made at this time. REVIEW OF SYSTEMS: This cannot be obtained as the patient is currently intubated, and nonresponsive. PHYSICAL EXAMINATION: VITAL SIGNS: Afebrile, pulse 100, blood pressure 110/87, respirations 16, saturation 95%, currently on room air. GENERAL: The patient is awake and alert, in no apparent distress. LUNGS: Decent air entry. No prolonged expiratory phase or wheezing present. HEART: Normal rate, regular. ABDOMEN: Soft, nontender, nondistended. Bowel sounds are positive. MUSCULOSKELETAL: No cyanosis or clubbing. EXTREMITIES: There is no pitting in bilateral lower extremities. NEUROLOGIC: He is completely unresponsive. He does not withdraw from noxious stimuli. That being said, with very gentle stimulation, it little precipitate myoclonic jerking spell. With no stimulation, the these taper off and he is quite unresponsive. His pupils are fixed. He is not currently overbreathing the ventilator. LABORATORY DATA: WBC 11.3, hemoglobin 14.3, platelets 33,000. PH 7.33, pCO2 24, pO2 337, corresponding to a saturation of 99%. Basic metabolic profile is completely unremarkable. AST, ALT, and alkaline phosphatase are elevated. Lactic acid 7.5, troponin 0.018. Carbamazepine is below the assay limit of 1.9, valproic acid level 43.8, phenytoin level is also below the assay limit. IMAGIN. CT of the brain demonstrates no acute intracranial abnormality. 2. Chest x-ray demonstrates no acute cardiopulmonary abnormality. There is no overt infiltrates, or effusions present. Large gastric bubble is noted. There is an enteric catheter coursing midline below the level of the diaphragm. The INFANTRY INDIRECT FIRE CREWMEMBER shunt is visualized over the left anterior thorax. I cannot see the endotracheal tube. Vagal nerve stimulator is on the right anterior chest with a lead coursing up into the left neck. ASSESSMENT: 1. Pulseless electrical activity arrest. 2. Anoxic brain injury with myoclonic jerks, suspected. 3. Seizure disorder. 4. Shock liver. 5. Aspiration of foreign body. DISCUSSION AND PLAN: We will do a bronchoscopy making certain that there is no retained hot dog and that got pushed into the trachea as the report would suggest. We will reposition the endotracheal tube, if needed. We will get a stat EEG. If this is not available, we will transition to a higher level of care. My suspicion is that we are dealing with a burst suppression pattern of injury and myoclonic jerking, but I want to be absolutely certain he is not having ongoing seizure activity that requires more emergent 24 hour EEG monitoring. The shock liver will likely resolve on its own. If his AST and ALT do not trend downward over the next 48 hours, we will likely need to further investigate this process. Pulmonary/Critical Care will continue to follow very closely. CRITICAL CARE TIME: 30 minutes. Job ID: [id number]
--- NOTE | 2019-04-16 03:13 | OP ---
DATE OF PROCEDURE: 04/15/2019 SERVICE: Pulmonary Medicine. PROCEDURE: Fiberoptic bronchoscopy with visual airway inspection. PREPROCEDURE DIAGNOSES: 1. Possible aspiration of food. 2. Acute hypoxic respiratory failure. POSTPROCEDURE DIAGNOSES: 1. No evidence for aspirated food. 2. Acute hypoxic respiratory failure. MEDICATIONS USED: None. PREANESTHESIA ASSESSMENT: H and P had been performed. The patient's medications and allergies were reviewed. Informed consent was obtained after discussing the risks, benefits, and rationale for performing the procedure as well as alternative options. DESCRIPTION OF PROCEDURE: A time-out was performed, identifying the correct procedure and patient with name and date of . A diagnostic fiberoptic bronchoscope was introduced through the endotracheal tube. The bronchoscope was advanced into the trachea, where tracheobronchial tree inspection was carried out with clear identification of the right upper lobe, right middle lobe, right lower lobe, left upper lobe, lingula, and left lower lobe. No foreign body was identified. The endotracheal tube was in good position roughly 3-4 cm above the level of the gallo. There were no significant secretions. Hemostasis was verified and bronchoscope was subsequently removed. FINDINGS: 1. No endobronchial disease was identified. 2. Gallo is sharp. 3. No foreign body. 4. Secretions were minimal. SPECIMENS OBTAINED: None. COMPLICATIONS: None. ESTIMATED BLOOD LOSS: None. DISPOSITION: The patient will recover in the ICU and remain on mechanical ventilator. Job ID: [id number] MTDD
[2019-04-16 04:15] LABS: ALT (SGPT) 308 U/L (8-55); AST (SGOT) 379 U/L (5-34); Albumin 3.7 g/dL (3.5-5.0); Alkaline Phosphatase 84 U/L (40-110); Anion Gap 12 mmol/L (10-20); BUN (Urea Nitrogen) 13 mg/dL (8.9-20.6); Bilirubin, Total 0.3 mg/dL (0.2-1.2); Calc. Creatinine Clearance 125 mL/min (70-130); Calcium 8.2 mg/dL (7.8-10.44); Carbon Dioxide 21 mmol/L (22-29); Chloride 111 mmol/L (98-107); Estimated GFR-MDRD Greater than 90; Globulin 2.9 g/dL (2.4-3.5); Glucose 77 mg/dL (70-105); Potassium 3.8 mmol/L (3.5-5.1); Protein, Total 6.6 g/dL (6.0-8.3); Sodium 140 mmol/L (136-145)
[2019-04-16 04:20] LABS: Lactic Acid 2.4 mmol/L (0.5-2.2)
[2019-04-16 04:24] LABS: Band 8 % (5-11); Hemoglobin 13.2 g/dL (14.0-18.0); Lymphocytes 10 % (21-51); MDiff Complete? YES; Mean Corpuscular HGB CONC 34.2 g/dL (32.0-36.0); Mean Corpuscular Hemoglobin 34.8 pg (27.0-31.0); Mean Platelet Volume 7.8 fL (7.4-10.4); Monocytes 12 % (0-10); Neutrophil 68 % (42-75); Platelet Count 128 thou/uL (130-400); Platelet Morphology Comment Appears Adequate; RBC Distribution Width 11.2 % (11.5-14.5); Red Blood Cell (RBC) Count 3.79 mill/uL (4.70-6.10)
[2019-04-16 04:27] LABS: Troponin I 1.546 ng/mL (< 0.028)
[2019-04-16] MEDS: Ampicillin/Sulbactam 1.5 GM in Sodium Chloride 0.9% 100 ML IVPB SCH ×4 (04:31→21:31)
[2019-04-16] MEDS: SYSTANE 3.5 GM TUBE EA EYE PRN (04:50)
--- NOTE | 2019-04-16 06:11 | PDOC.FM ---
- Subjective Subjective: Mother, father, and step mother at bedside. Family confirms previously documented history. He has continued to have jerking movements, worse on his left. - Objective MAR Reviewed: Yes Vital Signs & Weight: Vital Signs (12 hours) Pulse Resp BP Pulse Ox 04/16/19 04:00 27 H 100 04/16/19 02:07 64 112/77 04/16/19 02:00 26 H 04/16/19 00:00 27 H 100 04/15/19 21:19 103 H 27 H 106/55 L 100 04/15/19 20:30 100 Weight Weight 54.9 kg Most Recent Monitor Data Heart Rate from ECG 63 NIBP 105/69 NIBP BP-Mean 81 Respiration from ECG 20 SpO2 100 I&O: 04/14/19 04/15/19 04/16/19 06:59 06:59 06:59 Intake Total 1250 Output Total 1180 Balance 70 Result Diagrams: 04/16/19 09:54 04/16/19 09:54 Phys Exam - Physical Examination GCS E4 VT1 M5. Pt is sedated and has his eyes taped closed at this time HEENT: moist MMs Neck: no JVD Respiratory: no wheezing, clear to auscultation bilateral Good air movement Cardiovascular: no significant murmur Bradycardic, regular rhythm Gastrointestinal: soft, no distention, positive bowel sounds Musculoskeletal: no edema, pulses present DTR intact, exam limited by sedation, myoclonic jerking worse on left Skin: cap refill <2 seconds Dx/Plan (1) Respiratory arrest Code(s): R09.2 - RESPIRATORY ARREST Status: Acute (2) Cerebral palsy Code(s): G80.9 - CEREBRAL PALSY, UNSPECIFIED Status: Chronic (3) Epilepsy Code(s): G40.909 - EPILEPSY, UNSP, NOT INTRACTABLE, WITHOUT STATUS EPILEPTICUS Status: Chronic (4) Recurrent seizures Code(s): G40.909 - EPILEPSY, UNSP, NOT INTRACTABLE, WITHOUT STATUS EPILEPTICUS Status: Suspected - Plan Plan: This is a 24 yo male with a pmh of CP, hydrocephalus, epilepsy, tachy john syndrome Hospital Day 1 Code: DNAR DVT prophylaxis: SCDs, lovenox GI prophylaxis: Pepcid Family: Parents at bedside Fluids: LR 10ml/hr Nutrition: NPO Drips: Propofol 30mcg/kg/min Plastic: ET/OG tubes, Giles, IV in right AC and left hand Vent settings: SIMV 13 breaths/min, [id number], PS 13, Fio2 31, Peep 5.0 Respiratory arrest s/p ROSC -Pt currently on ventilator support -Unasyn on for aspiration PNA prophylaxis -Dr. Dykes, pulmonology consulted -Bronch negative for foreign body -On cooling protocol Seizure vs myoclonic jerking -Unable to rule out continuous seizure, family does not want transfer to higher level of care for further evaluation -Pt is on home vimpat and depakote at this time -PRN ativan ordered -Dr. Person consulted -Plan for EEG this AM Transaminitis, likely ischemic hepatitis -Improving, will monitor -Continue supportive care Thrombocytopenia, improving -Will resume pharmaceutical DVT prophylaxis Elevated troponins -2/2 respiratory arrest CP -Baseline mentation of 4 yo per family Addendum - Attending - Attending Attestation Date/Time: 04/16/19 1041 I personally evaluated the patient and discussed the management with Dr. Emerson I agree with the History, Examination, Assessment and Plan documented above with any addition or exceptions noted below. Unfortunate 24 yo male with Cerebral palsy s/p choking aspiration episode with Cardiopulmonary arrest with CPR initiated at home, FB removed from airway by EMS. Patient with ROSC in field per EMS. Patient hypothermic at admission with myoclonic jerking not typical of his seizure D/O. Patient had bronchoscopy without retained FB. EEG this am preliminary unofficial report worrisome for marked anoxic brain injury. Family at bedside and aware of guarded prognosis and Patient has been made DNR. Family inquiring about organ harvest/donation if he remains with poor outlook after suggested 72 hour waiting period will continue expectant management and palliative care on board.
[2019-04-16] MEDS ORDERED: levETIRAcetam In NaCl (Iso-Os) 2,000 MG in Premix Bag 1 BAG IVPB SCH (09:30)
[2019-04-16] MEDS: levETIRAcetam In NaCl (Iso-Os) 1,000 MG in Premix Bag 1 BAG IVPB SCH ×3 (10:05→20:34)
--- NOTE | 2019-04-16 10:05 | PRG ---
DATE OF SERVICE: 04/16/2019 SUBJECTIVE: Seth Beckman is unfortunate 24-year-old gentleman, who choked on a hot dog last night, was found with severe respiratory distress. 911 was called and EMS tried to dislodge his food. He was eventually intubated with a #6 endotracheal tube. EEG this morning shows burst pattern consistent with severe anoxic injury. Family is at the bedside including mother, father, and a stepmother, who is a nurse. They understand that overall prognosis is grave. The patient this morning is doing dystonic clonic jerking activity, on Diprivan. OBJECTIVE: VITAL SIGNS: Pulse 71, blood pressure 90/58, saturations 100%, temperature 93. CHEST: Decreased breath sounds. No wheezing. CARDIAC: Normal S1 and S2. No gallops. ABDOMEN: No masses. LABORATORY DATA: White count is 11,000, H and H are 13 and 38, platelet count is normal. His lytes are normal. IMAGING STUDIES: Chest x-ray is clear. ASSESSMENT AND PLAN: 1. Baseline epilepsy, seizure disorder, cerebral palsy. 2. Anoxic injury, status post choking on food. 3. Pulmonary berry, continue present supportive care. Continue seizure medication. Empiric antibiotics for aspiration pneumonia. We will follow. One-half hour of critical time. Job ID: [id number]
[2019-04-16 10:18] LABS: Hemoglobin 12.1 g/dL (14.0-18.0); Mean Corpuscular HGB CONC 33.6 g/dL (32.0-36.0); Mean Corpuscular Hemoglobin 34.3 pg (27.0-31.0); Mean Platelet Volume 7.7 fL (7.4-10.4); Platelet Count 132 thou/uL (130-400); RBC Distribution Width 10.8 % (11.5-14.5); Red Blood Cell (RBC) Count 3.53 mill/uL (4.70-6.10); White Blood Cell (WBC) Count 8.1 thou/uL (4.8-10.8)
[2019-04-16 10:20] LABS: INR-International Normal Ratio 1.1; Prothrombin Time 14.1 SEC (12.0-14.7)
[2019-04-16] MEDS: Enoxaparin Sodium 40 MG/0.4 ML SYRINGE SC SCH (10:20)
[2019-04-16] MEDS: Famotidine/PF 20 mg/2ml Vial SLOW IVP SCH ×2 (10:20→20:35)
[2019-04-16 10:21] LABS: PTT 28.6 SEC (22.9-36.1)
[2019-04-16 10:39] LABS: Anion Gap 9 mmol/L (10-20); BUN (Urea Nitrogen) 13 mg/dL (8.9-20.6); Calc. Creatinine Clearance 129 mL/min (70-130); Carbon Dioxide 25 mmol/L (22-29); Chloride 109 mmol/L (98-107); Estimated GFR-MDRD Greater than 90; Glucose 67 mg/dL (70-105); Magnesium 1.4 mg/dL (1.6-2.6); Phosphorus 2.8 mg/dL (2.3-4.7); Potassium 3.2 mmol/L (3.5-5.1); Sodium 140 mmol/L (136-145)
[2019-04-16 10:41] LABS: Band 9 % (5-11); Eosinophils 1 % (0-10); Lymphocytes 17 % (21-51); MDiff Complete? YES; Monocytes 11 % (0-10); Neutrophil 62 % (42-75); RBC Morphology Normal
[2019-04-16 10:42] LABS: Critical Call Chem Troponin I RESULT DECREASING
[2019-04-16 11:04] LABS: CKMB 19.3 ng/mL (0-6.6)
--- NOTE | 2019-04-16 11:38 | RAD ---
SINGLE VIEW OF THE CHEST: COMPARISON: 04/15/2019. HISTORY: Ventilated patient with respiratory failure. FINDINGS: A single view of the chest shows a normal-size cardiomediastinal silhouette. There is an endotrachea l tube with its tip at the lower border of the clavicles. An NG tube is seen in the stomach. Shunt catheters project over both chest wodo. A newer shunt catheter is seen projecting over the left ventura st wall and is coiled in the left upper quadrant of the abdomen. This likely represents a INSULATION BOARD HEAD SAW OPERATOR shunt. A vagal stimulator is seen in the upper chest with its leads in the left neck. There is no evidence of consolidation, or pleural effusion. IMPRESSION: 1. No evidence of acute cardiopulmonary disease. 2. Appropriate position of endotracheal tube and nasogastric tube. POS: TPC
[2019-04-16] MEDS: Lactated Ringer's 1,000 ML IV SCH ×2 (14:45→17:34)
[2019-04-16] MEDS: Lorazepam 2 MG/ML VIAL SLOW IVP PRN ×2 (14:45→17:12)
--- NOTE | 2019-04-16 15:35 | EEG ---
Referring Physician: Alirio SPENCE EEG # [id number] TEST TYPE: ROUTINE PORTABLE INPATIENT REPORT: AN EEG USING THE INTERNATIONAL TEN-TWENTY SYSTEM OF ELECTRODE PLACEMENT WAS PERFORMED. The background activity consists of sustained generalized bursts of epileptiform activity followed by suppression. The pattern remained consistent throughout the tracing. Photic stimulation was unremarkable. IMPRESSION: THIS EEG IS CONSISTENT WITH A BURST-SUPPRESSION PATTERN COMMONLY SEEN IN ANOXIC INJURIES, WHICH CARRIES A VERY POOR PROGNOSIS. Factory Representative: KELLEY Window Cleaner: EEG.ANEL CHAIDEZ
[2019-04-16] MEDS ORDERED: Lactated Ringer's 1,000 ML IV SCH (16:30)
[2019-04-16] MEDS ORDERED: Dextrose 50% Abboject 50 ML SYRINGE SLOW IVP PRN (20:41)
[2019-04-16] MEDS ORDERED: Dextrose 5% in Water 1,000 ML IV PRN (20:41)
[2019-04-16] MEDS ORDERED: Dextrose 50 % In Water 50 ML SYRINGE ONE (20:55)
--- NOTE | 2019-04-16 23:30 | CON ---
DATE OF CONSULTATION: 04/16/2019 CONSULTING PHYSICIAN: Hospitalist Service. IMPRESSION: Anoxic encephalopathy with secondary burst suppression pattern which carries a poor prognosis. Discussed the situation with his parents. Given the logistics of the weekend days ahead, I would suggest we hold off on doing an apnea test or discontinuing support until I can reassess him on Saturday. Seth is a 24-year-old young male with history of cerebral palsy and mental retardation. He is looked after by a sitter. The sitter heard him gasping and she rushed in to try to assist him. He apparently had choked on a hot dog. She was unable to clear his airway. She called 911 and they arrived to find that he had gone into a cardiac arrest. He was resuscitated and intubated, was brought into the ICU for care. He has had some continuous myoclonic jerking that was noted since last night. He was loaded with Keppra, but this has continued. He has been on a propofol drip and he has maintained some low amplitude myoclonus. EEG was done this morning, which showed a burst-suppression pattern. PAST MEDICAL HISTORY: Otherwise unremarkable. FAMILY HISTORY: Noncontributory. ALLERGIES: NONE REPORTED. SOCIAL HISTORY: No drug or alcohol use. REVIEW OF SYSTEMS: Ten-system review of systems is not obtainable. PHYSICAL EXAMINATION: GENERAL: He is a well-nourished young man, lying in bed, on ventilatory support. VITAL SIGNS: Blood pressure 94/60, pulse 76 in the sinus rhythm, saturations 100%. HEENT: Eyes are rolled upward. They appear conjugate. He has some partial lid opening. He is orally intubated. His tone is symmetric. He has some myoclonic jerks that occur every 2 to 3 seconds. No response to stimulation otherwise. IMAGING STUDIES: CT of the brain was unremarkable. SUMMARY: As noted above, I feel like the prognosis for any functional recovery is quite small. Given his young age, we can hold off on making any decisions until he has had at least 72 or more hours to clear the direction he is headed. Hopefully, this will become more straightforward for his parents to make a decision. Job ID: [id number]
[2019-04-17] MEDS: LACOSAMIDE IVPB SCH ×2 (00:36→13:09)
[2019-04-17] MEDS: SODIUM CHLORIDE 0.9% IVPB SCH ×2 (00:36→13:09)
[2019-04-17] MEDS: Ampicillin/Sulbactam 1.5 GM in Sodium Chloride 0.9% 100 ML IVPB SCH ×4 (03:48→21:29)
[2019-04-17] MEDS: Lactated Ringer's 1,000 ML IV SCH ×4 (03:48→23:28)
[2019-04-17 04:34] LABS: ALT (SGPT) 164 U/L (8-55); AST (SGOT) 107 U/L (5-34); Albumin 3.5 g/dL (3.5-5.0); Alkaline Phosphatase 71 U/L (40-110); Anion Gap 14 mmol/L (10-20); BUN (Urea Nitrogen) 9 mg/dL (8.9-20.6); Bilirubin, Total 0.4 mg/dL (0.2-1.2); Calc. Creatinine Clearance 117 mL/min (70-130); Calcium 8.3 mg/dL (7.8-10.44); Carbon Dioxide 18 mmol/L (22-29); Chloride 114 mmol/L (98-107); Estimated GFR-MDRD Greater than 90; Globulin 2.6 g/dL (2.4-3.5); Glucose 77 mg/dL (70-105); Protein, Total 6.1 g/dL (6.0-8.3); Sodium 142 mmol/L (136-145)
[2019-04-17 05:39] LABS: Band 12 % (5-11); Eosinophils 1 % (0-10); Hemoglobin 12.9 g/dL (14.0-18.0); Lymphocytes 24 % (21-51); MDiff Complete? YES; Mean Corpuscular HGB CONC 34.2 g/dL (32.0-36.0); Monocytes 3 % (0-10); Neutrophil 60 % (42-75); Platelet Count 137 thou/uL (130-400); RBC Distribution Width 11.1 % (11.5-14.5); Red Blood Cell (RBC) Count 3.69 mill/uL (4.70-6.10); White Blood Cell (WBC) Count 8.9 thou/uL (4.8-10.8)
[2019-04-17] MEDS: Propofol 1,000 MG/100 ML VIAL IV PRN (06:05)
--- NOTE | 2019-04-17 07:10 | PDOC.FM ---
- Subjective Subjective: No further seizures overnight. Pt has not been making attempts to breath on his own. Family at bedside. - Objective MAR Reviewed: Yes Vital Signs & Weight: Vital Signs (12 hours) Pulse Resp BP Pulse Ox 04/17/19 06:00 13 04/17/19 04:00 13 04/17/19 02:19 72 128/91 H 04/17/19 02:00 13 04/17/19 00:10 66 131/96 H 04/17/19 00:00 13 04/16/19 22:10 71 123/88 04/16/19 22:00 13 04/16/19 20:00 13 100 Weight Admit Weight 54.885 kg Weight 54.6 kg Most Recent Monitor Data Heart Rate from ECG 71 NIBP 130/89 NIBP BP-Mean 102 Respiration from ECG 14 SpO2 100 I&O: 04/16/19 04/17/19 04/18/19 06:59 06:59 06:59 Intake Total 1840 4230.8 Output Total 1225 2468 Balance 615 1762.8 Result Diagrams: 04/17/19 04:03 04/17/19 04:03 Phys Exam - Physical Examination Sedated Pupils dilated, little if any response to light Neck: no JVD Respiratory: clear to auscultation bilateral Cardiovascular: RRR, no significant murmur Gastrointestinal: soft, no distention, positive bowel sounds Musculoskeletal: no edema, pulses present Neurological: moves all 4 limbs Skin: cap refill <2 seconds Dx/Plan (1) Respiratory arrest Code(s): R09.2 - RESPIRATORY ARREST Status: Acute (2) Cerebral palsy Code(s): G80.9 - CEREBRAL PALSY, UNSPECIFIED Status: Chronic (3) Epilepsy Code(s): G40.909 - EPILEPSY, UNSP, NOT INTRACTABLE, WITHOUT STATUS EPILEPTICUS Status: Chronic (4) Recurrent seizures Code(s): G40.909 - EPILEPSY, UNSP, NOT INTRACTABLE, WITHOUT STATUS EPILEPTICUS Status: Suspected - Plan Plan: This is a 24 yo male with a pmh of CP, hydrocephalus, epilepsy, tachy john syndrome Hospital Day 2 Code: DNAR DVT prophylaxis: SCDs, lovenox GI prophylaxis: Pepcid Family: Parents at bedside Fluids: LR 10ml/hr Nutrition: NPO Drips: Propofol 30mcg/kg/min Plastic: ET/OG tubes, Giles, IV in right AC and left hand Vent settings: SIMV 13 breaths/min, [id number], PS 13, Fio2 31, Peep 5.0 Plan: Overall poor prognosis of meaningful recovery. Will give pt 72 hours to assess direction of recovery. Family appears to have limited understanding of prognosis. Respiratory arrest s/p ROSC -Pt currently on ventilator support -Unasyn on for aspiration PNA prophylaxis -Dr. Dykes, pulmonology consulted -Bronch negative for foreign body Seizure vs myoclonic jerking -Unable to rule out continuous seizure, family does not want transfer to higher level of care for further evaluation -Pt is on home vimpat and depakote at this time -PRN ativan ordered -Dr. Persno consulted -EEG does not show continuous seizure activity Transaminitis, likely ischemic hepatitis -Improving, will monitor -Continue supportive care Thrombocytopenia, improving -Will resume pharmaceutical DVT prophylaxis Elevated troponins -2/2 respiratory arrest CP -Baseline mentation of 4 yo per family Addendum - Attending - Attending Attestation Date/Time: 04/17/19 1130 I personally evaluated the patient and discussed the management with Dr. Emerson I agree with the History, Examination, Assessment and Plan documented above with any addition or exceptions noted below. Patient no significant change for observation continued supportive care he is off sedation with minimal brain activity no further episode of myoclonic jerking. Patient Father and family member updated patient status and care plan . ocean transportation intermediary prognosis remains grave. For evaluation with EEG Saturday. Appreciate input from Neurology and Critical care.
--- NOTE | 2019-04-17 08:54 | PRG ---
DATE OF SERVICE: 04/17/2019 SUBJECTIVE: Seth Beckman is a 24-year-old gentleman, status post anoxic injury, choked on a piece of food. OBJECTIVE: VITAL SIGNS: Pulse 64, blood pressure 133/92, pulse 105, respiratory rate 18, and temperature 99. CHEST: Decreased breath sounds. Minimal rhonchi. CARDIAC: Normal S1 and S2. No gallops. ABDOMEN: No masses. LABORATORY DATA: Lytes are normal. X-ray is clear. White count 8000. IMPRESSION: 1. Severe anoxic injury, burst pattern. 2. Baseline underlying cerebral palsy. 3. Convulsions. 4. Seizure disorder. otherwise, continue supportive care, PT. We are going to give the patient for 72 hours to see whether he gets better. Otherwise, he will be extubated from comfort care. In the meantime, empiric antibiotics. This is one-half hour of critical care time. Job ID: [id number]
[2019-04-17] MEDS: Famotidine/PF 20 mg/2ml Vial SLOW IVP SCH ×2 (09:05→21:29)
[2019-04-17] MEDS: Enoxaparin Sodium 40 MG/0.4 ML SYRINGE SC SCH (09:05)
[2019-04-17] MEDS: levETIRAcetam In NaCl (Iso-Os) 1,000 MG in Premix Bag 1 BAG IVPB SCH ×2 (09:06→22:22)
--- NOTE | 2019-04-17 09:47 | RAD ---
PORTABLE CHEST: HISTORY: CCU followup. Ventilator followup. COMPARISON: 04/16/19. FINDINGS: Lungs remain well aerated and clear of focal infiltrate. No evidence of vascular congestion. Heart and mediastinum unremarkable. ET, NG tube remain in adequate position. IMPRESSION: No interval change in appearance of the chest. POS: OFF
[2019-04-17] MEDS: SYSTANE 3.5 GM TUBE EA EYE PRN ×3 (12:12→23:28)
--- NOTE | 2019-04-17 12:26 | PRG ---
DATE OF SERVICE: 04/17/2019 Seth was stable overnight without any cardiovascular changes, remains in a sinus rhythm with pulse of 69 and blood pressure of 133/92. He is afebrile. On exam, his doll's head maneuver still intact. He has a brisk corneal response. He has some spontaneous eyelid movement. He did not have any response to truncal pain. The myoclonus appears to have resolved. He is currently off all sedation. At this point, he is progressing closer to chronic vegetative state, although I did not elicit any respiratory drive with a short apnea test, I have explained the changes to his father. We will continue to monitor his course given the residual brainstem function. Overall, the prognosis looks poor. Job ID: [id number]
[2019-04-17 15:37] VITALS: BMI 21.3
--- NOTE | 2019-04-17 16:43 | PDOC.PALCO ---
Palliative Care Consult - Consult Details Requesting Physician: Dr Iniguez Reason for Consult: family support Family Members Present: Sister and [id number] as well as primary caregiver - Pertinent HPI Mr Beckman is a 24 year old male who has a history or CP and has been cared for at home. He attempted to eat a hotdog and after being left alone for a few minutes he was found to be unresponsive, CPR initiated and EMS called. patient was intubated, cpr continued and transferred to [facility]. Evaluated and admitted to CCU. Patient baseline previously found to be that of a [age] year old , he has poor meaningful recovery and family has elected to compassionately extubate and proceed with organ donation. - Social History Smoking Status: Never smoker Smoking: no tobacco exposure Alcohol Use: none Drug Use History: none Living Situation: with family/parents - Medications MAR Reviewed: Yes - Allergies Allergies/Adverse Reactions: Allergies Allergy/AdvReac Type Severity Reaction Status Date / Time amoxicillin [Amoxicillin] Allergy Verified 04/15/19 21:20 Penicillins Allergy Verified 04/15/19 21:20 phenytoin [From Dilantin] Allergy Verified 04/15/19 21:20 vancomycin Allergy Verified 04/15/19 21:20 - Subjective Mechanical ventilation, non responsive. - ROS Non Response: due to endotracheal tube, due to mental status - Objective Vital Signs: Vital Signs - Most Recent Temp Pulse Resp BP Pulse Ox 99.4 F 72 10 L 128/91 H 100 04/17/19 12:00 04/17/19 14:55 04/17/19 14:00 04/17/19 02:19 04/17/19 08:00 Palliative Performance Scale: 10 - Physical Exam Constitutional: encephalitic HEENT: moist MMs, sclera anicteric Deviation from normal: mechanical ventilation Cardiovascular: no significant murmur, RRR Gastrointestinal: positive bowel sounds, incontinent Genitourinary: nergo catheter Musculoskeletal: pulses present, diffuse muscle atrophy Skin: cap refill <2 seconds, no lesions, no rash Deviation from normal: sedated - Problem List (1) Respiratory arrest Code(s): R09.2 - RESPIRATORY ARREST Status: Acute (2) Cerebral palsy Code(s): G80.9 - CEREBRAL PALSY, UNSPECIFIED Status: Chronic - Plan/Recommendations Plan: Consult for Family support. Sister at bedside with her significant other and patient primary caregiver over the past several years. Tearful, states they have significant support. Therapeutic listening and emotional support. Palliative Care will continue to follow and offer family support as needed. [30] minutes spent on this encounter with >50% of the time in counseling and coordination of care. Thank you for this very appropriate consult.
[2019-04-17] MEDS ORDERED: Acetaminophen 650 MG Suppository PR PRN (19:24)
[2019-04-17] MEDS: Acetaminophen 650 MG/20.3 ML UDCUP PO PRN (19:51)
[2019-04-17 20:15] LABS: Bacteria/HPF None Seen HPF (None Seen); Bilirubin Negative (Negative); Blood, Urine 1+ (Negative); Clarity Clear (Clear); Glucose, Urine (Dipstick) Normal (Negative); Leukocyte Negative Leu/uL (Negative); Nitrite Negative (Negative); Protein, Urine (Dipstick) Negative (Neg-Trace); Squamous Epithelial None Seen HPF (0-3); Urobilinogen Normal mg/dL (Less than 2)
[2019-04-18] MEDS: LACOSAMIDE IVPB SCH ×2 (01:07→11:39)
[2019-04-18] MEDS: SODIUM CHLORIDE 0.9% IVPB SCH ×2 (01:07→11:39)
[2019-04-18] MEDS: Ampicillin/Sulbactam 1.5 GM in Sodium Chloride 0.9% 100 ML IVPB SCH ×4 (03:54→22:06)
[2019-04-18 05:14] LABS: ALT (SGPT) 93 U/L (8-55); AST (SGOT) 62 U/L (5-34); Albumin 2.9 g/dL (3.5-5.0); Alkaline Phosphatase 60 U/L (40-110); Anion Gap 15 mmol/L (10-20); BUN (Urea Nitrogen) 11 mg/dL (8.9-20.6); Bilirubin, Total 0.4 mg/dL (0.2-1.2); Calc. Creatinine Clearance 123 mL/min (70-130); Calcium 7.1 mg/dL (7.8-10.44); Carbon Dioxide 22 mmol/L (22-29); Chloride 114 mmol/L (98-107); Estimated GFR-MDRD Greater than 90; Globulin 2.5 g/dL (2.4-3.5); Glucose 96 mg/dL (70-105); Potassium 3.5 mmol/L (3.5-5.1); Protein, Total 5.4 g/dL (6.0-8.3); Sodium 147 mmol/L (136-145)
[2019-04-18 05:26] LABS: Band 12 % (5-11); Eosinophils 1 % (0-10); Hemoglobin 10.8 g/dL (14.0-18.0); Lymphocytes 21 % (21-51); MDiff Complete? YES; Mean Corpuscular HGB CONC 35.4 g/dL (32.0-36.0); Mean Corpuscular Hemoglobin 35.9 pg (27.0-31.0); Mean Platelet Volume 8.7 fL (7.4-10.4); Monocytes 12 % (0-10); Neutrophil 54 % (42-75); Platelet Count 112 thou/uL (130-400); Platelet Morphology Comment Appears Decreased; White Blood Cell (WBC) Count 6.5 thou/uL (4.8-10.8)
--- NOTE | 2019-04-18 05:57 | PDOC.FM ---
- Subjective Subjective: Nursing states pt did well overnight. She did report some decrease in urine output. Mother at bedside reports that he has become more agitated with external stimuli. She states she has been able to calm him down some. Pt did fever overnight. - Objective MAR Reviewed: Yes Vital Signs & Weight: Vital Signs (12 hours) Temp Pulse Resp Pulse Ox 04/18/19 04:00 100.3 F H 52 L 10 L 04/18/19 02:26 53 L 04/18/19 02:00 10 L 04/18/19 00:00 99.8 F H 14 04/17/19 22:00 99.8 F H 10 L 04/17/19 20:00 99.8 F H 10 L 100 04/17/19 19:28 72 04/17/19 19:00 101.2 F H 04/17/19 18:00 10 L Weight Admit Weight 54.885 kg Weight 54.6 kg Most Recent Monitor Data Heart Rate from ECG 53 NIBP 126/77 NIBP BP-Mean 93 Respiration from ECG 10 SpO2 100 I&O: 04/16/19 04/17/19 04/18/19 06:59 06:59 06:59 Intake Total 1840 4230.8 1842 Output Total 1225 2468 820 Balance 615 1762.8 1022 Result Diagrams: 04/18/19 04:10 04/18/19 04:10 Phys Exam - Physical Examination unresponsive HEENT: PERRLA, moist MMs Neck: no JVD Coarse lung sounds Cardiovascular: RRR, no significant murmur Gastrointestinal: soft, no distention, positive bowel sounds Musculoskeletal: no edema, pulses present Myoclonic jerks Skin: cap refill <2 seconds Dx/Plan (1) Respiratory arrest Code(s): R09.2 - RESPIRATORY ARREST Status: Acute (2) Cerebral palsy Code(s): G80.9 - CEREBRAL PALSY, UNSPECIFIED Status: Chronic (3) Epilepsy Code(s): G40.909 - EPILEPSY, UNSP, NOT INTRACTABLE, WITHOUT STATUS EPILEPTICUS Status: Chronic (4) Recurrent seizures Code(s): G40.909 - EPILEPSY, UNSP, NOT INTRACTABLE, WITHOUT STATUS EPILEPTICUS Status: Suspected - Plan Plan: This is a 24 yo male with a pmh of CP, hydrocephalus, epilepsy, tachy john syndrome Hospital Day 3 Code: DNAR DVT prophylaxis: SCDs, lovenox GI prophylaxis: Pepcid Family: Mother at bedside Fluids: LR 100ml/hr Nutrition: NPO Drips: none Plastic: ET/OG tubes, Giles, IV in right AC and left hand Vent settings: SIMV 13 breaths/min, [id number], PS 13, Fio2 31, Peep 5.0 Plan: Overall poor prognosis of meaningful recovery. Will give pt 72 hours to assess direction of recovery. Family appears to have limited understanding of prognosis. Respiratory arrest s/p ROSC -Pt currently on ventilator support -Unasyn on for aspiration PNA prophylaxis -Dr. Dykes, pulmonology consulted -Bronch negative for foreign body Seizure vs myoclonic jerking -Unable to rule out continuous seizure, family does not want transfer to higher level of care for further evaluation -Pt is on home vimpat and depakote at this time -PRN ativan ordered -Dr. Person consulted -EEG does not show continuous seizure activity Transaminitis, likely ischemic hepatitis -Improving, will monitor -Continue supportive care Thrombocytopenia, improving -Will resume pharmaceutical DVT prophylaxis Elevated troponins -2/2 respiratory arrest CP -Baseline mentation of 4 yo per family
[2019-04-18] MEDS: Acetaminophen 650 MG/20.3 ML UDCUP PO PRN (06:05)
[2019-04-18] MEDS: Propofol 1,000 MG/100 ML VIAL IV PRN ×2 (07:58→23:04)
[2019-04-18] MEDS: Enoxaparin Sodium 40 MG/0.4 ML SYRINGE SC SCH (08:00)
[2019-04-18] MEDS: Famotidine/PF 20 mg/2ml Vial SLOW IVP SCH ×2 (08:01→21:07)
[2019-04-18] MEDS: levETIRAcetam In NaCl (Iso-Os) 1,000 MG in Premix Bag 1 BAG IVPB SCH ×2 (08:37→21:07)
[2019-04-18] MEDS: Lactated Ringer's 1,000 ML IV SCH ×2 (09:13→18:35)
--- NOTE | 2019-04-18 10:02 | RAD ---
FRONTAL RADIOGRAPH CHEST: 04/18/2019 HISTORY: Ventilated patient. COMPARISON: 04/17/2019 FINDINGS: Endotracheal tube and nasogastric tube are in stable position. Hazy air space disease is noted in the medial left lung base, which may represent infiltrate or volume loss. No lobar consolidation. IMPRESSION: 1. Lines and tubes as detailed above. 2. Hazy increased density noted in the medial left base. Follow-up imaging advised to document resolution. POS: ROSAURA
[2019-04-18] MEDS ORDERED: DOPamine 400 MG/D5W 250 ML 250 ML ONE (15:51)
--- NOTE | 2019-04-18 15:55 | PRG ---
DATE OF SERVICE: 04/18/2019 Please see note from Dr. Emerson, for which I agree. The patient was seen, evaluated, discussed, and examined with the residents by bedside. This is an unfortunate 24-year-old with history of cerebral palsy, who basically aspirated and had respiratory failure on a hot dog. EEG showed massive anoxic brain injury and sounds like from Neurology's opinion extremely poor prognosis, were still having him on the ventilator, given antibiotics as he does have a little bit of fever and supportive care and continuing his home antiseizure medicines that he is already on, was having some mono-clonic jerking activity throughout and so was put back on sedation for that. Family understands extremely poor prognosis and sounds like the plan was to give him another day or 2 to see if neurologically he improves at all, and if not likely palliative extubation and then just kind of a watch and see approach from there. Appreciate Neurology, Palliative Care, and Pulmonary involvement as well. Job ID: [id number]
[2019-04-18 15:59] LABS: Actual Bicarbonate (HCO3a) 23.3 mEq/L (22-28); Base Excess (BEa) -0.7 mEq/L (-2.0 to +3.0); CO2 Tension 36.3 mmHg (35.0-45.0); Calcium, Ionized 1.17 mmol/L (1.12-1.30); Carboxyhemoglobin (COHb) 0.5 gm% (0.0-3.0); Hemoglobin (Hb) 11.4 g/dL (14.0-18.0); O2 Tension (PaO2) 123.3 mmHg (80.0-100.0); Potassium - ABG Lab 3.69 mmol/L (3.70-5.30); pH, Arterial 7.43 (7.35-7.45)
[2019-04-18 16:04] LABS: ALV-art Gradient 52.355 (0-20); Puncture Site RRAD
[2019-04-18] MEDS ORDERED: DOPamine 400 MG/D5W 250 ML 250 ML IVPB SCH (16:15)
--- NOTE | 2019-04-18 19:08 | PRG ---
DATE OF SERVICE: 04/18/2019 SUBJECTIVE: Seth Beckman continues to have myoclonic jerking. He became bradycardic this afternoon, so a low dose of dopamine was started. There was no acid-base disorder or electrolyte imbalance to account for his bradycardia. Respiratory rate is per mechanical ventilation. OBJECTIVE: LUNGS: Clear. HEART: Regular rhythm. ABDOMEN: Soft. VITAL SIGNS: Blood pressure 139/92. LABORATORY DATA: White count 6.5, hemoglobin 10.8, platelets 112,000. Sodium 147, potassium 3.5, chloride 114, bicarb 22, BUN 11, and creatinine 0.73. IMPRESSION AND PLAN: 1. Severe anoxic brain injury after an [id number] arrest associated with choking. 2. Learning disability prior to this. I am not optimistic sadly that he will return to a reasonable functional level. We will continue to go date and time. An EEG will be repeated Saturday. Critical care time is 35 minutes. Job ID: [id number] MTDD
[2019-04-18] MEDS: Lorazepam 2 MG/ML VIAL SLOW IVP PRN ×2 (21:04→22:20)
[2019-04-19] MEDS: SODIUM CHLORIDE 0.9% IVPB SCH ×3 (00:11→23:58)
[2019-04-19] MEDS: LACOSAMIDE IVPB SCH ×3 (00:11→23:58)
[2019-04-19] MEDS: Ampicillin/Sulbactam 1.5 GM in Sodium Chloride 0.9% 100 ML IVPB SCH ×4 (04:07→21:03)
[2019-04-19 05:07] LABS: ALT (SGPT) 79 U/L (8-55); AST (SGOT) 81 U/L (5-34); Albumin 3.2 g/dL (3.5-5.0); Alkaline Phosphatase 68 U/L (40-110); Anion Gap 10 mmol/L (10-20); BUN (Urea Nitrogen) 7 mg/dL (8.9-20.6); Bilirubin, Total 0.3 mg/dL (0.2-1.2); Calc. Creatinine Clearance 145 mL/min (70-130); Carbon Dioxide 25 mmol/L (22-29); Chloride 105 mmol/L (98-107); Estimated GFR-MDRD Greater than 90; Globulin 2.5 g/dL (2.4-3.5); Glucose 114 mg/dL (70-105); Potassium 3.2 mmol/L (3.5-5.1); Protein, Total 5.7 g/dL (6.0-8.3); Sodium 137 mmol/L (136-145)
[2019-04-19] MEDS: Lactated Ringer's 1,000 ML IV SCH ×2 (06:05→12:35)
--- NOTE | 2019-04-19 06:06 | PDOC.FM ---
- Subjective Subjective: Pt had some bradycardia yesterday afternoon and was started on dopamine. Nursing reports overnight, his shaking activity increased and so she put him on an increased propofol drip. - Objective MAR Reviewed: Yes Vital Signs & Weight: Vital Signs (12 hours) Temp Pulse Resp Pulse Ox 04/19/19 04:00 98.8 F 10 L 04/19/19 02:48 55 L 04/19/19 02:00 10 L 04/19/19 00:40 51 L 04/19/19 00:00 98.7 F 10 L 04/18/19 22:16 65 04/18/19 22:00 99.0 F 10 L 04/18/19 20:00 10 L 99 04/18/19 19:00 99.2 F 04/18/19 18:52 54 L Weight Admit Weight 54.885 kg Weight 55.8 kg Most Recent Monitor Data Heart Rate from ECG 59 NIBP 125/78 NIBP BP-Mean 93 Respiration from ECG 11 SpO2 99 I&O: 04/17/19 04/18/19 04/19/19 06:59 06:59 06:59 Intake Total 4230.8 3170 2662 Output Total 2468 880 2580 Balance 1762.8 2290 82 Result Diagrams: 04/19/19 04:10 04/19/19 04:10 Phys Exam - Physical Examination Sedated HEENT: moist MMs Neck: no JVD Respiratory: no wheezing Coarse lung sounds, improving Cardiovascular: RRR, no significant murmur Gastrointestinal: soft, no distention, positive bowel sounds Musculoskeletal: no edema, pulses present Currently shaking, unable to assess neuro due to sedation Skin: cap refill <2 seconds Dx/Plan (1) Respiratory arrest Code(s): R09.2 - RESPIRATORY ARREST Status: Acute (2) Cerebral palsy Code(s): G80.9 - CEREBRAL PALSY, UNSPECIFIED Status: Chronic (3) Epilepsy Code(s): G40.909 - EPILEPSY, UNSP, NOT INTRACTABLE, WITHOUT STATUS EPILEPTICUS Status: Chronic (4) Recurrent seizures Code(s): G40.909 - EPILEPSY, UNSP, NOT INTRACTABLE, WITHOUT STATUS EPILEPTICUS Status: Suspected - Plan Plan: This is a 24 yo male with a pmh of CP, hydrocephalus, epilepsy, tachy john syndrome Hospital Day 4 Code: DNAR DVT prophylaxis: SCDs, lovenox GI prophylaxis: Pepcid Family: Mother at bedside Fluids: LR 100ml/hr Nutrition: Jevity 1.5 tube feeds Drips: Propofol 30, dopamine 2.5 Plastic: ET/OG tubes, Giles, IV in right AC and left hand Vent settings: SIMV 13 breaths/min, [id number], PS 13, Fio2 31, Peep 5.0 Plan: Overall poor prognosis of meaningful recovery. Will give pt 72 hours to assess direction of recovery. Family appears to have limited understanding of prognosis. Respiratory arrest s/p ROSC -Pt currently on ventilator support -Unasyn on for aspiration PNA prophylaxis -Dr. Dykes, pulmonology consulted -Bronch negative for foreign body Seizure vs myoclonic jerking -Pt is on home vimpat and depakote at this time -PRN ativan ordered -Dr. Person consulted -EEG does not show continuous seizure activity, plan for repeat EEG on Saturday to assess function Transaminitis, likely ischemic hepatitis -Improving, will monitor -Continue supportive care Thrombocytopenia, improving -Will resume pharmaceutical DVT prophylaxis Elevated troponins -2/2 respiratory arrest CP -Baseline mentation of 4 yo per family
[2019-04-19 06:07] LABS: Hemoglobin 11.8 g/dL (14.0-18.0); Mean Corpuscular HGB CONC 35.8 g/dL (32.0-36.0); Mean Platelet Volume 7.9 fL (7.4-10.4); Platelet Count 129 thou/uL (130-400); Red Blood Cell (RBC) Count 3.28 mill/uL (4.70-6.10); White Blood Cell (WBC) Count 7.3 thou/uL (4.8-10.8)
[2019-04-19] MEDS: Lorazepam 2 MG/ML VIAL SLOW IVP PRN (06:42)
[2019-04-19 06:49] LABS: Band 9 % (5-11); Eosinophils 1 % (0-10); Lymphocytes 17 % (21-51); MDiff Complete? YES; Monocytes 6 % (0-10); Neutrophil 67 % (42-75)
[2019-04-19] MEDS: SYSTANE 3.5 GM TUBE EA EYE PRN ×2 (07:43→15:06)
[2019-04-19] MEDS: Famotidine/PF 20 mg/2ml Vial SLOW IVP SCH ×2 (08:43→21:03)
[2019-04-19] MEDS: levETIRAcetam In NaCl (Iso-Os) 1,000 MG in Premix Bag 1 BAG IVPB SCH ×2 (08:44→21:03)
[2019-04-19] MEDS: Enoxaparin Sodium 40 MG/0.4 ML SYRINGE SC SCH (08:50)
--- NOTE | 2019-04-19 09:09 | RAD ---
PORTABLE SEMIUPRIGHT FRONTAL CHEST RADIOGRAPH: 04/19/2019 HISTORY: Ventilated patient. COMPARISON: 04/18/2019 FINDINGS: Stable endotracheal tube and nasogastric tube. Heart and mediastinal contours are stable. Mild nonspe cific hazy increased density is again noted within the medial right lung base, which may signify infe ctious pneumonitis or volume loss. Ventriculoperitoneal shunt tubing is present. A vagal nerve stimul ator is noted. IMPRESSION: No significant interval change. POS: MALCOLM
[2019-04-19] MEDS: Propofol 1,000 MG/100 ML VIAL IV PRN ×2 (09:49→18:17)
--- NOTE | 2019-04-19 12:15 | PRG ---
DATE OF SERVICE: 04/19/2019 Please see note from Dr. Narayan Emerson, for which I agree. The patient was seen, evaluated, discussed, and examined with the residents by bedside. This unfortunate gentleman, who is here after cardiac and pulmonary arrest from aspirating a hot dog, basically still having a lot of breakthrough seizure activity. We are trying to assess his brain function after this prolonged hypoxic event. Does have history of seizures before, but these seem a little bit more pronounced out of character according to the family and so, we are trying to keep him sedated, was not as disturbing to family when he is having these seizures, but at the same time, I do not want him to be on somewhat sedatives that the planned EEG for tomorrow to ascertain brain function is compromised. So, we are continuing home seizure medicines and going to give more Valium more frequently at least to probably about 6 p.m., try to give him at least 12 hours of benzodiazepine free before we do the EEG tomorrow. We will run this by neuro, but it sounds like they are out for the weekend and so obviously if he is having massive breakthrough seizures risk and I have to keep him on benzodiazepines even tonight and just see what Neurology wants to do as far as the EEG. Unfortunately, prognosis is extremely poor and probably headed toward terminal extubation and I have even been discussed with family the possibility of him being an organ donor, but for now, supportive care. Job ID: [id number]
--- NOTE | 2019-04-19 18:14 | PRG ---
DATE OF SERVICE: 04/19/2019 SUBJECTIVE: Seth Villalta has not improved. He had 2 generalized seizures yesterday. He had bradycardia, that I believe was a Crosslake's reflex. I suspect propofol kept him from getting hypertensive with that. He is on a low dose of dopamine to keep his heart rate in the 40s. OBJECTIVE: LUNGS: Unchanged. HEART: Unchanged. ABDOMEN: Unchanged. NEUROLOGIC: Overall, neurologically, I do not feel he is improving. He will have an EEG tomorrow with sedation off. I doubt he will progress to brain by tomorrow, but his father wants him to be a DCD donor if he is no better and if there is no functional hope for recovery. Electrolytes and CBC really do not have any new significant abnormalities. He does have barely elevated liver enzymes, which I suspect related to his arrest. following the patient. Critical care time is 35 minutes. Job ID: [id number] MTDD
[2019-04-20] MEDS: Lactated Ringer's 1,000 ML IV SCH ×3 (02:28→20:52)
[2019-04-20] MEDS: Propofol 1,000 MG/100 ML VIAL IV PRN ×3 (02:28→20:38)
[2019-04-20] MEDS: Ampicillin/Sulbactam 1.5 GM in Sodium Chloride 0.9% 100 ML IVPB SCH ×4 (04:09→22:06)
[2019-04-20 05:58] LABS: ALT (SGPT) 64 U/L (8-55); AST (SGOT) 62 U/L (5-34); Albumin 3.1 g/dL (3.5-5.0); Alkaline Phosphatase 76 U/L (40-110); Anion Gap 9 mmol/L (10-20); BUN (Urea Nitrogen) 8 mg/dL (8.9-20.6); Bilirubin, Total 0.2 mg/dL (0.2-1.2); Calc. Creatinine Clearance 169 mL/min (70-130); Calcium 8.1 mg/dL (7.8-10.44); Carbon Dioxide 27 mmol/L (22-29); Chloride 104 mmol/L (98-107); Estimated GFR-MDRD Greater than 90; Globulin 2.7 g/dL (2.4-3.5); Glucose 107 mg/dL (70-105); Potassium 3.2 mmol/L (3.5-5.1); Protein, Total 5.8 g/dL (6.0-8.3); Sodium 137 mmol/L (136-145)
--- NOTE | 2019-04-20 06:08 | PDOC.FM ---
- Subjective Subjective: Nursing reports pt had 8 seizures overnight that were treated with propofol. She also reports that his heart rate required more dopamine support. There is now a need for a bearhugger to maintain temperature. STA has been notified this morning in regards to the plan. - Objective MAR Reviewed: Yes Vital Signs & Weight: Vital Signs (12 hours) Temp Pulse Resp Pulse Ox 04/20/19 04:29 45 L 04/20/19 04:00 94.5 F L 10 L 04/20/19 02:00 10 L 04/20/19 01:42 48 L 04/20/19 00:00 97.7 F 10 L 04/19/19 23:00 45 L 04/19/19 22:00 10 L 04/19/19 20:00 97.5 F L 10 L 100 04/19/19 18:54 48 L Weight Admit Weight 54.885 kg Weight 55.8 kg Most Recent Monitor Data Heart Rate from ECG 42 NIBP 132/87 NIBP BP-Mean 102 Respiration from ECG 10 SpO2 100 I&O: 04/18/19 04/19/19 04/20/19 06:59 06:59 06:59 Intake Total 3170 4394.5 4875.7 Output Total 880 2780 4250 Balance 2290 1614.5 625.7 Result Diagrams: 04/20/19 05:08 04/20/19 05:08 Phys Exam - Physical Examination Intubated, sedated Neck: no JVD Respiratory: no wheezing, clear to auscultation bilateral Cardiovascular: no significant murmur bradycardic, regular rhythm Gastrointestinal: soft, no distention, positive bowel sounds Musculoskeletal: no edema, pulses present Skin: cap refill <2 seconds Dx/Plan (1) Respiratory arrest Code(s): R09.2 - RESPIRATORY ARREST Status: Acute (2) Cerebral palsy Code(s): G80.9 - CEREBRAL PALSY, UNSPECIFIED Status: Chronic (3) Epilepsy Code(s): G40.909 - EPILEPSY, UNSP, NOT INTRACTABLE, WITHOUT STATUS EPILEPTICUS Status: Chronic (4) Recurrent seizures Code(s): G40.909 - EPILEPSY, UNSP, NOT INTRACTABLE, WITHOUT STATUS EPILEPTICUS Status: Suspected - Plan Plan: This is a 24 yo male with a pmh of CP, hydrocephalus, epilepsy, tachy john syndrome Hospital Day 5 Code: DNAR DVT prophylaxis: SCDs, lovenox GI prophylaxis: Pepcid Family: Mother at bedside Fluids: LR 100ml/hr Nutrition: Jevity 1.5 tube feeds Drips: Propofol 20, dopamine 3 Plastic: ET/OG tubes, Giles, IV in right AC and left hand Vent settings: SIMV 10 breaths/min, [id number], PS 13, Fio2 31, Peep 5.0 Plan: Overall poor prognosis of meaningful recovery. Will repeat EEG today to assess brain function and recovery Respiratory arrest s/p ROSC -Pt currently on ventilator support -Unasyn on for aspiration PNA prophylaxis -Dr. Dykes, pulmonology consulted -Bronch negative for foreign body Seizure vs myoclonic jerking -Pt is on home vimpat and depakote at this time -PRN ativan held overnight pending EEG this morning -Dr. Person consulted -EEG does not show continuous seizure activity, plan for repeat EEG today to assess function Transaminitis, likely ischemic hepatitis -Improving, will monitor -Continue supportive care Thrombocytopenia, improving -Will resume pharmaceutical DVT prophylaxis Elevated troponins -2/2 respiratory arrest CP -Baseline mentation of 4 yo per family Bradycardia -Pt on dopamine to support heart rate Hypothermia -Pt has now required the bear hugger to maintain his body temperature Addendum - Attending - Attending Attestation Date/Time: 04/20/19 4992 I personally evaluated the patient and discussed the management with Dr. Emerson I agree with the History, Examination, Assessment and Plan documented above with any addition or exceptions noted below. Note patient needing support to maintain temperature and continued myoclonic seizure activity lat pm. Repeat EEG completed this am final report pending. Prognosis remains grave patient family currently meeting with organ procurement/ donation personnel regard options. Patient with severe anoxic injury s/p greater 72 hours observation. Patient family states will meet with Neurologist later this pm. Family with extensive support team in attendance.
[2019-04-20 06:15] LABS: Hemoglobin 12.6 g/dL (14.0-18.0); Mean Corpuscular HGB CONC 35.4 g/dL (32.0-36.0); Mean Corpuscular Hemoglobin 35.4 pg (27.0-31.0); Mean Platelet Volume 7.8 fL (7.4-10.4); Platelet Count 155 thou/uL (130-400); RBC Distribution Width 10.9 % (11.5-14.5); Red Blood Cell (RBC) Count 3.57 mill/uL (4.70-6.10); White Blood Cell (WBC) Count 6.5 thou/uL (4.8-10.8)
[2019-04-20 06:18] LABS: Eosinophils 4 % (0-10); Lymphocytes 33 % (21-51); MDiff Complete? YES; Monocytes 10 % (0-10); Neutrophil 53 % (42-75)
[2019-04-20] MEDS: Famotidine/PF 20 mg/2ml Vial SLOW IVP SCH ×2 (09:44→20:38)
[2019-04-20] MEDS: Enoxaparin Sodium 40 MG/0.4 ML SYRINGE SC SCH (09:44)
[2019-04-20] MEDS: levETIRAcetam In NaCl (Iso-Os) 1,000 MG in Premix Bag 1 BAG IVPB SCH ×2 (09:44→20:38)
[2019-04-20] MEDS ORDERED: Rocuronium Bromide 50 MG/5 ML VIAL IVP SCH ×2 (10:30→11:05)
[2019-04-20] MEDS ORDERED: Rocuronium Bromide 50 MG/5 ML VIAL ONE (10:31)
--- NOTE | 2019-04-20 11:04 | PRG ---
DATE OF SERVICE: 04/20/2019 SUBJECTIVE: This morning, he remains intubated in the vent on Diprivan, multiple antiseizure medications, Keppra 1000 twice a day, Lacosamide twice a day, Ativan p.r.n., propofol and valproic acid 125 every 6 hours. We withheld his Diprivan for no more than a minute. He was having this tonic-clonic activity involving his right side. OBJECTIVE: VITAL SIGNS: Pulse 65, blood pressure 160/60, sats are 100%, respiratory rate 20. CHEST: Decreased breath sounds. No wheezing. CARDIAC: Normal S1 and S2. No gallops. ABDOMEN: No masses. LABORATORY DATA: Lytes are normal. AST is decreased. IMPRESSION: 1. Anoxic injury, baseline cerebral palsy. 2. Seizure disorder. PLAN: Repeat EEG was ordered. Unfortunately, at this stage, his prognosis is guarded to grave. Get additional input from Neurology before family can make a decision. One-half hour of critical care time. Job ID: [id number]
[2019-04-20] MEDS: Rocuronium Bromide 50 MG/5 ML VIAL ONE ×2 (11:10→14:38)
--- NOTE | 2019-04-20 13:46 | EEG ---
Referring Physician: Dipika ALMONTE EEG # [id number] TEST TYPE: ROUTINE PORTABLE INPATIENT REPORT: AN EEG USING THE INTERNATIONAL TEN-TWENTY SYSTEM OF ELECTRODE PLACEMENT WAS PERFORMED. The background, at best, was a 5 hertz theta frequency. The dominant frequency was 3 hertz delta activity. Towards the end of the study a right central-parietal seizure focus evolved into a generalized spike and slow wave discharge pattern. This only lasted a few seconds. The background activity returned to generalized slowing. IMPRESSION: THIS IS AN ABNORMAL STUDY FOR THE FINDINGS OF DIFFUSE SLOWING CONSISTENT WITH A DIFFUSE ENCEPHALOPATHIC PROCESS WITH A SUPERIMPOSED SEIZURE FOCUS FROM THE RIGHT CENTRAL-PARIETAL REGION. Shearing Machine Tender: KELLEY Director Of Sustainability Programs: [email or web address] CHAIDEZ
[2019-04-20] MEDS: SODIUM CHLORIDE 0.9% IVPB SCH (13:49)
[2019-04-20] MEDS: LACOSAMIDE IVPB SCH (13:49)
--- NOTE | 2019-04-20 13:50 | RAD ---
PORTABLE CHEST: Date: 04/20/2019 HISTORY: Attempted central line placement which was unsuccessful. Evaluation for pneumothorax. COMPARISON: 04/19/2019 and 04/18/2019 exams. FINDINGS: Endotracheal and NG tubes are in satisfactory position. Ventriculoperitoneal shunt tube overlies the left chest. Increased density in the retrocardiac region would suggest atelectasis. I do not see any signs of pneumothorax; however, there is pleural thickening seen in both lung apices, and some promin ence of upper mediastinum. I am not certain how much of the mediastinal change is related to the supi ne technique. I do not appreciate any pneumothorax. IMPRESSION: Development of biapical pleural thickening and some prominence to the upper mediastinum. The upper me diastinal prominence could possibly just be on the basis of supine technique, but the pleural changes would not be expected to be related to supine technique and appear new as compared to the previous e xams. This could represent blood. If there is any suspicion for mediastinal hematoma, CT may be helpf ul in further evaluation. I see no signs of pneumothorax. POS: [facility]
[2019-04-20 14:21] LABS: #Basophils 0.1 thou/uL (0.0-0.2); #Eosinphils 0.1 thou/uL (0.0-0.7); #Lymphocytes 0.8 thou/uL (1.20-3.40); #Monocytes 0.7 thou/uL (0.11-0.59); #Neutrophils 4.6 thou/uL (1.40-6.50); %Basophils 1.3 % (0.0-1.0); %Eosinophils 1.4 % (0.0-10.0); %Monocytes 11.3 % (0.0-10.0); Hemoglobin 11.2 g/dL (14.0-18.0); Mean Corpuscular HGB CONC 35.4 g/dL (32.0-36.0); Mean Corpuscular Hemoglobin 35.2 pg (27.0-31.0); Mean Corpuscular Volume 99.4 fL (78.0-98.0); Mean Platelet Volume 7.4 fL (7.4-10.4); Platelet Count 162 thou/uL (130-400); RBC Distribution Width 10.9 % (11.5-14.5); Red Blood Cell (RBC) Count 3.18 mill/uL (4.70-6.10); White Blood Cell (WBC) Count 6.2 thou/uL (4.8-10.8)
[2019-04-20 14:28] LABS: PTT 28.6 SEC (22.9-36.1); Prothrombin Time 12.9 SEC (12.0-14.7)
--- NOTE | 2019-04-20 14:28 | OP ---
DATE OF PROCEDURE: 04/20/2019 PROCEDURE PERFORMED: Bronchoscopy. REASON: Pre-harvest for lung transplant, the patient with severe anoxic injury, baseline cerebral palsy. FINDINGS: 1. Trachea was normal. Jennifer was sharp. 2. The right lung was inspected initially. Right upper lobe, right middle lobe, right lower lobe were visualized without any endobronchial obstruction or blood. Minimal amount of clear mucus was seen. This was suctioned and lavaged with normal saline 30 mL. This was sent for Gram stain, C and S. 3. The trap was changed and the left lung was inspected. Left upper and left lower lobe were visualized. Again, no endobronchial obstruction, blood or pus. Minimal amount of clear secretion was seen, which was suctioned and lavaged with normal saline, about a total of 30 mL. Both casts were sent for Gram stain, C and S. The patient tolerated the procedure well. It appears his tracheobronchial anatomy is normal without any significant edema or lesions or secretions or pus. Job ID: [id number]
[2019-04-20 14:32] LABS: Hemoglobin A1c 4.9 % (4.0-6.0)
[2019-04-20 14:44] LABS: Phosphorus 3.3 mg/dL (2.3-4.7)
[2019-04-20 14:48] LABS: ALT (SGPT) 61 U/L (8-55); AST (SGOT) 66 U/L (5-34); Alkaline Phosphatase 75 U/L (40-110); Anion Gap 10 mmol/L (10-20); BUN (Urea Nitrogen) 8 mg/dL (8.9-20.6); Bilirubin, Total 0.3 mg/dL (0.2-1.2); Calc. Creatinine Clearance 163 mL/min (70-130); Calcium 7.9 mg/dL (7.8-10.44); Carbon Dioxide 26 mmol/L (22-29); Chloride 104 mmol/L (98-107); Estimated GFR-MDRD Greater than 90; Globulin 2.2 g/dL (2.4-3.5); Glucose 107 mg/dL (70-105); Lipase 364 U/L (8-78); Magnesium 1.4 mg/dL (1.6-2.6); Potassium 3.7 mmol/L (3.5-5.1); Protein, Total 5.2 g/dL (6.0-8.3); Sodium 136 mmol/L (136-145)
[2019-04-20 14:49] LABS: Troponin I Less than 0.010 ng/mL (< 0.028)
--- NOTE | 2019-04-20 15:05 | RAD ---
XR Chest 1 View Portable HISTORY: Post attempted central line. Follow-up for evaluation of pneumothorax. COMPARISON: Exam done earlier today. FINDINGS: Endotracheal and NG tubes remain in satisfactory position. Ventricular peritoneal shunt tub es are seen overlying the chest. On the right side apical pleural cap remains. On the left side there is been development of a large l eft-sided pneumothorax with collapse to the left lower lobe. There are atelectatic changes in the right lung base. No definite right-sided pneumothorax is seen. IMPRESSION: Large left-sided pneumothorax. There is a persistent apical pleural cap on the right. The re is been development of atelectasis in the right lung base. There is almost complete collapse of the left upper and lower lobe. Findings were telephoned to Aurora the patient's nurse.
[2019-04-20 15:07] LABS: Actual Bicarbonate (HCO3a) 28.2 mEq/L (22-28); Base Excess (BEa) 4.4 mEq/L (-2.0 to +3.0); Calcium, Ionized 1.13 mmol/L (1.12-1.30); Carboxyhemoglobin (COHb) 0.3 gm% (0.0-3.0); Hemoglobin (Hb) 10.5 g/dL (14.0-18.0); O2 Tension (PaO2) 302.2 mmHg (80.0-100.0); Potassium - ABG Lab 3.69 mmol/L (3.70-5.30); pH, Arterial 7.48 (7.35-7.45)
[2019-04-20 15:09] LABS: Puncture Site LINE
[2019-04-20] MEDS ORDERED: Lidocaine 1% (PF) 30 ML VIAL ONE (15:13)
[2019-04-20] MEDS ORDERED: Lidocaine 1% (PF) 30 ML VIAL FS ONE (15:30)
--- NOTE | 2019-04-20 15:58 | RAD ---
EXAM: XR Chest 1 View Portable PROVIDED CLINICAL HISTORY: Chest tube insertion and central line placement. COMPARISON: 04/20/2019 at 1415 hours. FINDINGS: Endotracheal tube and nasogastric tubes remain in place. Ventriculoperitoneal shunt catheters again o verlie the chest and coursing to the upper abdomen. There is been interval placement of a left-sided thoracostomy tube with tip overlying the left upper lung zone. Previously seen large left- sided pneumothorax is almost completely resolved with suggestion of tiny pneumothorax at the left lung base. Normal parenchymal densities are seen at each lung base which may be related to bibasilar atelectasis. Pneumonitis right lung base cannot be entirely excluded. Symmetric biapical densities are seen which may represent biapical pleural thickening. A neural stimulator device overlies the rig ht chest with lead coursing over the mediastinum and superiorly. IMPRESSION: 1. Interval placement of left-sided thoracostomy tube with almost complete resolution of left-sided p neumothorax. There is questionable tiny residual pneumothorax at the lateral left lung base. 2. Patchy parenchymal densities at each lung base which may represent bibasilar atelectasis. Pneumoni tis cannot be entirely excluded. 3. Additional lines and tubes in place as described above.
[2019-04-20 16:15] LABS: CKMB 0.6 ng/mL (0-6.6)
[2019-04-20 16:16] LABS: Bacteria/HPF None Seen HPF (None Seen); Bilirubin Negative (Negative); Blood, Urine Negative (Negative); Clarity Clear (Clear); Glucose, Urine (Dipstick) Normal (Negative); Leukocyte Negative Leu/uL (Negative); Nitrite Negative (Negative); Protein, Urine (Dipstick) Negative (Neg-Trace); RBC/HPF 0-3 HPF (0-3); Squamous Epithelial None Seen HPF (0-3); Urobilinogen 3 mg/dL (Less than 2); WBC/HPF 0-3 HPF (0-3)
[2019-04-20 16:21] LABS: Urine Culture Reflex No No
[2019-04-20] MEDS: Magnesium 2 GM/50 ML 2 GM in Premix Bag 1 BAG IVPB PRN ×2 (17:13→22:43)
--- NOTE | 2019-04-20 19:07 | CT ---
CT OF CHEST, ABDOMEN, AND PELVIS PERFORMED WITHOUT CONTRAST ENHANCEMENT: History: Organ donor evaluation. FINDINGS: A left chest tube has been placed. There is a small residual left sided pneumothorax remaining. There is marked bibasilar atelectatic lung changes seen with a very small left and slightly larger right p leural effusion. There is now parenchymal changes within the right upper lobe that could potentially be on the basis of aspiration versus atelectatic change. Within the anterior mediastinum is high density material adjacent to the brachiocephalic vein and tra cking anterior to the aorta. The high density would suggest that this is blood. CT OF ABDOMEN PERFORMED WITHOUT CONTRAST ENHANCEMENT: The liver, spleen, pancreas, and gallbladder regions appear unremarkable. Ventricular peritoneal shun t tubes are present. There is some ascites present. This could be secondary to the ventriculoperitone al shunt. The right and left adrenal glands and right and left kidneys are normal in appearance. No free air is seen within the abdomen. A Giles catheter is in place within the bladder. IMPRESSION: 1. Left sided chest tube has been placed. The left pneumothorax is almost completely resolved. 2. Pronounced bibasilar atelectatic lung changes, small effusions. 3. Development of some right upper lobe parenchymal change which could represent infiltrate, possibly on the basis of aspiration or be related to some atelectatic lung change. 4. High density ill-defined area in the anterior mediastinum from approximately the level of the brac hiocephalic vein extending inferiorly adjacent to the pulmonary arteries and aortic arch. The high de nsity is most constituent with some mediastinal hematoma. 5. Some mild ascites which could be on the basis of the ventriculoperitoneal shunt tube. POS: [facility]
[2019-04-20 19:08] LABS: Actual Bicarbonate (HCO3a) 27.3 mEq/L (22-28); Base Excess (BEa) 2.8 mEq/L (-2.0 to +3.0); CO2 Tension 41.9 mmHg (35.0-45.0); Calcium, Ionized 1.17 mmol/L (1.12-1.30); Carboxyhemoglobin (COHb) 0.2 gm% (0.0-3.0); Hemoglobin (Hb) 11.6 g/dL (14.0-18.0); O2 Tension (PaO2) 180.8 mmHg (80.0-100.0); Potassium - ABG Lab 4.11 mmol/L (3.70-5.30); pH, Arterial 7.43 (7.35-7.45)
[2019-04-20 19:11] LABS: ALV-art Gradient 479.825 (0-20); Puncture Site LINE
[2019-04-20] MEDS ORDERED: Albuterol Sulfate 2.5 mg/3 ml Neb ONE (19:45)
[2019-04-20] MEDS ORDERED: Albuterol Sulfate 2.5 mg/3 ml Neb NEB PRN (19:46)
[2019-04-20 20:08] LABS: #Lymphocytes 0.7 thou/uL (1.20-3.40); #Monocytes 0.8 thou/uL (0.11-0.59); #Neutrophils 4.9 thou/uL (1.40-6.50); %Basophils 0.4 % (0.0-1.0); %Eosinophils 0.5 % (0.0-10.0); %Lymphocytes 11.3 % (21.0-51.0); %Monocytes 12.2 % (0.0-10.0); %Neutrophils 75.5 % (42.0-75.0); Mean Corpuscular HGB CONC 35.9 g/dL (32.0-36.0); Mean Corpuscular Hemoglobin 35.5 pg (27.0-31.0); Mean Corpuscular Volume 98.9 fL (78.0-98.0); Mean Platelet Volume 7.1 fL (7.4-10.4); Platelet Count 156 thou/uL (130-400); RBC Distribution Width 10.9 % (11.5-14.5); Red Blood Cell (RBC) Count 3.09 mill/uL (4.70-6.10); White Blood Cell (WBC) Count 6.5 thou/uL (4.8-10.8)
[2019-04-20 20:13] LABS: INR-International Normal Ratio 0.9; PTT 25.3 SEC (22.9-36.1); Prothrombin Time 12.5 SEC (12.0-14.7)
[2019-04-20 20:27] LABS: Phosphorus 3.5 mg/dL (2.3-4.7)
[2019-04-20 20:31] LABS: ALT (SGPT) 63 U/L (8-55); AST (SGOT) 71 U/L (5-34); Albumin 3.1 g/dL (3.5-5.0); Alkaline Phosphatase 77 U/L (40-110); Anion Gap 10 mmol/L (10-20); BUN (Urea Nitrogen) 7 mg/dL (8.9-20.6); Bilirubin, Total 0.3 mg/dL (0.2-1.2); Calc. Creatinine Clearance 169 mL/min (70-130); Calcium 7.9 mg/dL (7.8-10.44); Carbon Dioxide 26 mmol/L (22-29); Chloride 102 mmol/L (98-107); Estimated GFR-MDRD Greater than 90; Globulin 2.6 g/dL (2.4-3.5); Glucose 103 mg/dL (70-105); Lipase 300 U/L (8-78); Magnesium 2.1 mg/dL (1.6-2.6); Potassium 3.8 mmol/L (3.5-5.1); Protein, Total 5.7 g/dL (6.0-8.3); Sodium 134 mmol/L (136-145)
[2019-04-20] MEDS: Lorazepam 100 ML IVPB SCH (20:33)
[2019-04-20 20:35] LABS: Troponin I Less than 0.010 ng/mL (< 0.028)
--- NOTE | 2019-04-20 20:46 | OP ---
DATE OF PROCEDURE: 04/20/2019 PREOPERATIVE DIAGNOSIS: Anoxic brain injury, need for IV access. POSTOPERATIVE DIAGNOSIS: Anoxic brain injury, need for IV access. PROCEDURE PERFORMED: Right femoral central line placement. ANESTHESIA: Local. ESTIMATED BLOOD LOSS: Minimal. COMPLICATIONS: None. SPECIMEN: None. FINDINGS: No complication. TECHNIQUE: The right groin was shaved, prepped, and draped in a sterile fashion. Local anesthetic infiltrated over the right femoral vein femoral. Femoral vein cannula using a 22-gauge finder needle followed by a Seldinger needle. Wire was passed under no tension. Small rhys was made at the wire at the insertion site. The central line was used as a guide to dilate the femoral vein. Triple-lumen catheter was threaded to its fullest extent. The wire was pulled and removed. All ports flushed and drawn blood without difficulty. It was just flushed with a saline solution. Sterile dressings were placed. The patient tolerated the procedure well. Job ID: [id number]
--- NOTE | 2019-04-20 20:50 | OP ---
DATE OF PROCEDURE: 04/20/2019 PREOPERATIVE DIAGNOSIS: Left pneumothorax. POSTOPERATIVE DIAGNOSIS: Left pneumothorax. PROCEDURE PERFORMED: Left chest tube placement, 28-Turkmen. ANESTHESIA: Local. ESTIMATED BLOOD LOSS: Minimal. COMPLICATIONS: None. FINDINGS: Chest tubes in good position on x-ray. TECHNIQUE: The patient's left arm was placed up over his head. His left chest was prepped and draped in a sterile fashion. Local anesthetic infiltrated over the 5th intercostal space. Incision was made at the level of the nipple. Dissection has gone up above the 5th rib into the 4th interspace into the chest cavity. A large vallejo air was found. The 28-Turkmen chest tube was placed to 10 cm under no tension, connected to the Pleur-Evac. There was immediate exit of 100 mL of bloody looking fluid. The chest tube was sewn to the chest wall in place using silk suture. Postprocedure film showed good placement. No pneumothorax. Vaseline gauze, 4x4s, silk tape was used to dress it. Job ID: [id number]
[2019-04-20] MEDS ORDERED: Vancomycin HCl 1 GM in Premix Bag 1 BAG IVPB SCH (21:00)
[2019-04-20] MEDS: Albuterol Sulfate 2.5 mg/3 ml Neb NEB SCH (22:14)
--- NOTE | 2019-04-20 22:38 | RAD ---
PORTABLE CHEST ONE VIEW: Date: 04-20-2019 History: FINDINGS: Comparison is made with exam of -. Lines and tube placements remain in position. Heart size is normal. The lungs are expanded. There is widening of the upper mediastinum with ill-defined aortic knob. Densities at the lung bases are again seen. No definite pneumothorax is identified. A neurostimulator device overlying the right chest is again seen. POS: [facility]
[2019-04-20 23:00] LABS: Actual Bicarbonate (HCO3a) 24.1 mEq/L (22-28); Base Excess (BEa) 0.5 mEq/L (-2.0 to +3.0); CO2 Tension 35.2 mmHg (35.0-45.0); Calcium, Ionized 1.12 mmol/L (1.12-1.30); Carboxyhemoglobin (COHb) 0.3 gm% (0.0-3.0); Hemoglobin (Hb) 11.3 g/dL (14.0-18.0); O2 Tension (PaO2) 419.3 mmHg (80.0-100.0); Potassium - ABG Lab 3.37 mmol/L (3.70-5.30); pH, Arterial 7.45 (7.35-7.45)
[2019-04-20] MEDS ORDERED: Potassium Chloride 20 MEQ in Premix Bag 1 BAG IVPB SCH (23:00)
[2019-04-20 23:06] LABS: Puncture Site LINE
[2019-04-20] MEDS ORDERED: Piperacillin/Tazobactam 3.375 GM in Sodium Chloride 0.9% 100 ML IVPB SCH (23:59)
[2019-04-21] MEDS: SODIUM CHLORIDE 0.9% IVPB SCH ×2 (00:40→13:53)
[2019-04-21] MEDS: LACOSAMIDE IVPB SCH ×2 (00:40→13:53)
[2019-04-21 02:02] LABS: PTT 28.7 SEC (22.9-36.1); Prothrombin Time 12.8 SEC (12.0-14.7)
[2019-04-21 02:16] LABS: ALT (SGPT) 69 U/L (8-55); AST (SGOT) 76 U/L (5-34); Albumin 3.3 g/dL (3.5-5.0); Alkaline Phosphatase 83 U/L (40-110); Anion Gap 12 mmol/L (10-20); BUN (Urea Nitrogen) 5 mg/dL (8.9-20.6); Bilirubin, Total 0.3 mg/dL (0.2-1.2); Calc. Creatinine Clearance 160 mL/min (70-130); Calcium 8.4 mg/dL (7.8-10.44); Carbon Dioxide 25 mmol/L (22-29); Chloride 103 mmol/L (98-107); Estimated GFR-MDRD Greater than 90; Globulin 2.9 g/dL (2.4-3.5); Glucose 105 mg/dL (70-105); Lipase 198 U/L (8-78); Magnesium 2.2 mg/dL (1.6-2.6); Phosphorus 3.1 mg/dL (2.3-4.7); Protein, Total 6.2 g/dL (6.0-8.3); Sodium 136 mmol/L (136-145)
[2019-04-21 02:23] LABS: Band 9 % (5-11); Hemoglobin 11.2 g/dL (14.0-18.0); Lymphocytes 5 % (21-51); MDiff Complete? YES; Mean Corpuscular HGB CONC 35.6 g/dL (32.0-36.0); Mean Corpuscular Volume 98.4 fL (78.0-98.0); Mean Platelet Volume 6.9 fL (7.4-10.4); Monocytes 5 % (0-10); Neutrophil 81 % (42-75); Platelet Count 169 thou/uL (130-400); RBC Distribution Width 10.7 % (11.5-14.5); Red Blood Cell (RBC) Count 3.19 mill/uL (4.70-6.10)
[2019-04-21 02:24] LABS: Troponin I Less than 0.010 ng/mL (< 0.028)
[2019-04-21] MEDS: Albuterol Sulfate 2.5 mg/3 ml Neb NEB SCH ×6 (02:49→22:45)
[2019-04-21] MEDS: Magnesium 2 GM/50 ML 2 GM in Premix Bag 1 BAG IVPB PRN ×2 (02:57→11:01)
[2019-04-21] MEDS: Propofol 1,000 MG/100 ML VIAL IV PRN ×3 (02:58→20:08)
[2019-04-21] MEDS ORDERED: Calcium Gluconate 4.6 MEQ in Sodium Chloride 0.9% 100 ML IVPB SCH ×3 (03:00→21:45)
[2019-04-21 03:05] LABS: Actual Bicarbonate (HCO3a) 26.6 mEq/L (22-28); Base Excess (BEa) 5.3 mEq/L (-2.0 to +3.0); CO2 Tension 28.1 mmHg (35.0-45.0); Calcium, Ionized 1.11 mmol/L (1.12-1.30); Carboxyhemoglobin (COHb) 0.1 gm% (0.0-3.0); Hemoglobin (Hb) 10.8 g/dL (14.0-18.0); O2 Tension (PaO2) 352.2 mmHg (80.0-100.0); Potassium - ABG Lab 3.74 mmol/L (3.70-5.30)
[2019-04-21 03:07] LABS: ALV-art Gradient 325.675 (0-20); Puncture Site LINE; pH, Arterial 7.59 (7.35-7.45)
[2019-04-21] MEDS ORDERED: Potassium Chloride 20 MEQ in Premix Bag 1 BAG IVPB SCH ×3 (03:30→21:45)
[2019-04-21] MEDS: Ampicillin/Sulbactam 1.5 GM in Sodium Chloride 0.9% 100 ML IVPB SCH ×4 (03:51→22:53)
[2019-04-21] MEDS ORDERED: Vasopressin 20 UNIT in Sodium Chloride 0.9% 250 ML 250 ML IV SCH (04:30)
--- NOTE | 2019-04-21 06:14 | PDOC.FM ---
- Subjective Subjective: Pt had continuous seizures overnight and was started on an ativan drip. In addition, there were two hours in which he had greater than 500ml of urine output and was started on vasopressin. Family states all the labs and preparations have been started for organ donation. - Objective MAR Reviewed: Yes Vital Signs & Weight: Vital Signs (12 hours) Temp Pulse Resp BP Pulse Ox 04/21/19 04:00 98.0 F 10 L 04/21/19 02:49 69 126/85 04/21/19 02:00 11 L 04/21/19 00:00 97.7 F 11 L 04/20/19 22:15 56 L 04/20/19 22:00 11 L 04/20/19 20:00 10 L 100 04/20/19 19:32 66 155/82 H 04/20/19 19:00 97.3 F L 04/20/19 18:48 71 158/82 H Weight Admit Weight 54.885 kg Weight 58.1 kg Most Recent Monitor Data Heart Rate from ECG 75 NIBP 118/81 NIBP BP-Mean 93 Respiration from ECG 10 SpO2 100 I&O: 04/19/19 04/20/19 04/21/19 06:59 06:59 06:59 Intake Total 4394.5 4875.7 3546 Output Total 2780 4360 4750 Balance 1614.5 515.7 -1204 Result Diagrams: 04/21/19 13:54 04/21/19 13:54 Phys Exam - Physical Examination Intubated and sedated dry mm, syringe in place for bite block Neck: no JVD Coarse lung sounds, good air movement Left chest tube in place Cardiovascular: RRR, no significant murmur Gastrointestinal: soft, no distention, positive bowel sounds Musculoskeletal: no edema, pulses present Skin: cap refill <2 seconds Dx/Plan (1) Respiratory arrest Code(s): R09.2 - RESPIRATORY ARREST Status: Acute (2) Cerebral palsy Code(s): G80.9 - CEREBRAL PALSY, UNSPECIFIED Status: Chronic (3) Epilepsy Code(s): G40.909 - EPILEPSY, UNSP, NOT INTRACTABLE, WITHOUT STATUS EPILEPTICUS Status: Chronic (4) Recurrent seizures Code(s): G40.909 - EPILEPSY, UNSP, NOT INTRACTABLE, WITHOUT STATUS EPILEPTICUS Status: Suspected - Plan Plan: This is a 24 yo male with a pmh of CP, hydrocephalus, epilepsy, tachy john syndrome Hospital Day 6 Code: DNAR DVT prophylaxis: SCDs, lovenox GI prophylaxis: Pepcid Family: Mother at bedside Fluids: Nutrition: Jevity 1.5 tube feeds Drips: Propofol 30, dopamine 2 Plastic: ET/OG tubes, Giles, IV in right AC and left hand Vent settings: SIMV 10 breaths/min, PC 14, PS 13, Fio2 100, Peep 5.0 Plan: Overall poor prognosis of meaningful recovery. Labs, studies, and procedures in preparation for organ donation have been completed. Plan to donate today. Please see operative notes from yesterday for full details. Respiratory arrest s/p ROSC -Pt currently on ventilator support -Unasyn on for aspiration PNA prophylaxis -Dr. Dykes, pulmonology consulted -Repeat bronch shows clear lungs, gram stain and culture sent Seizure vs myoclonic jerking -Pt is on home vimpat and depakote at this time -Dr. Person consulted -EEG shows worsening findings consistent with encephalopathy Transaminitis, likely ischemic hepatitis -Improving, will monitor -Continue supportive care Thrombocytopenia, improving -Will resume pharmaceutical DVT prophylaxis Elevated troponins -2/2 respiratory arrest CP -Baseline mentation of 2 yo per family Bradycardia -Pt on dopamine to support heart rate Addendum - Attending - Attending Attestation Date/Time: 04/21/19 1496 I personally evaluated the patient and discussed the management with Dr. Emerson I agree with the History, Examination, Assessment and Plan documented above with any addition or exceptions noted below. Prognosis grave conversion to management per transplant team. Patient Father aware of status and anticipated plans for organ procurement.
[2019-04-21 07:18] LABS: Actual Bicarbonate (HCO3a) 24.6 mEq/L (22-28); Base Excess (BEa) -0.1 mEq/L (-2.0 to +3.0); CO2 Tension 40.4 mmHg (35.0-45.0); Calcium, Ionized 1.14 mmol/L (1.12-1.30); Carboxyhemoglobin (COHb) 0.3 gm% (0.0-3.0); Hemoglobin (Hb) 10.1 g/dL (14.0-18.0); O2 Tension (PaO2) 417.1 mmHg (80.0-100.0); Potassium - ABG Lab 4.08 mmol/L (3.70-5.30)
[2019-04-21 07:20] LABS: Puncture Site LINE
--- NOTE | 2019-04-21 08:42 | PRG ---
DATE OF SERVICE: 04/21/2019 SUBJECTIVE: A 24-year-old gentleman, who had a left-sided chest tube inserted for pneumothorax secondary to central line placement. This morning, his x-ray shows right upper lung atelectatic area, but left lung is completely expanded. OBJECTIVE: VITAL SIGNS: Pulse 93, blood pressure 120/85, sats 100%. CHEST: Rhonchi in right lung. Left unremarkable. CARDIAC: Normal S1, S2. No gallops. ABDOMEN: Soft. NEUROLOGIC: Sedated. LABORATORY DATA: White count 7000, hemoglobin 11, hematocrit 31, platelet count 169. Lytes are normal. PO2 is 417, pCO2 of 40%, pH 7.40, 100%, rate of 10. Lytes are normal. Liver function slightly elevated. Amylase is elevated. Lipase is elevated. IMPRESSION: 1. Anoxic injury. 2. Status post pneumothorax secondary to central line placement. 3. New right upper lung atelectatic changes probably from mucus. His bronchoscopy was completely unremarkable. PLAN: He is going to [place] for organ donation purposes. Pulmonary berry, we could consider doing a repeat bronchoscopy regarding his right lung atelectasis. Discussed with organ donation coordinating nurse team. Pulmonary will follow while in the ICU. Job ID: [id number]
[2019-04-21 08:52] LABS: #Lymphocytes 0.8 thou/uL (1.20-3.40); #Monocytes 0.7 thou/uL (0.11-0.59); #Neutrophils 3.8 thou/uL (1.40-6.50); %Basophils 0.1 % (0.0-1.0); %Eosinophils 0.5 % (0.0-10.0); %Lymphocytes 15.1 % (21.0-51.0); %Monocytes 13.5 % (0.0-10.0); %Neutrophils 70.8 % (42.0-75.0); Hemoglobin 10.3 g/dL (14.0-18.0); Mean Corpuscular HGB CONC 34.6 g/dL (32.0-36.0); Mean Corpuscular Hemoglobin 34.5 pg (27.0-31.0); Mean Corpuscular Volume 99.5 fL (78.0-98.0); Mean Platelet Volume 7.1 fL (7.4-10.4); Platelet Count 171 thou/uL (130-400); RBC Distribution Width 10.7 % (11.5-14.5); Red Blood Cell (RBC) Count 2.99 mill/uL (4.70-6.10); White Blood Cell (WBC) Count 5.3 thou/uL (4.8-10.8)
[2019-04-21] MEDS: Enoxaparin Sodium 40 MG/0.4 ML SYRINGE SC SCH (08:53)
[2019-04-21] MEDS: Famotidine/PF 20 mg/2ml Vial SLOW IVP SCH ×2 (08:54→20:52)
[2019-04-21] MEDS: levETIRAcetam In NaCl (Iso-Os) 1,000 MG in Premix Bag 1 BAG IVPB SCH ×2 (08:54→20:08)
[2019-04-21 08:55] LABS: PTT 28.6 SEC (22.9-36.1); Prothrombin Time 13.3 SEC (12.0-14.7)
[2019-04-21 09:18] LABS: ALT (SGPT) 63 U/L (8-55); AST (SGOT) 67 U/L (5-34); Albumin 3.1 g/dL (3.5-5.0); Alkaline Phosphatase 76 U/L (40-110); Anion Gap 12 mmol/L (10-20); BUN (Urea Nitrogen) 5 mg/dL (8.9-20.6); Bilirubin, Total 0.3 mg/dL (0.2-1.2); Calc. Creatinine Clearance 159 mL/min (70-130); Carbon Dioxide 26 mmol/L (22-29); Chloride 104 mmol/L (98-107); Estimated GFR-MDRD Greater than 90; Globulin 2.7 g/dL (2.4-3.5); Glucose 114 mg/dL (70-105); Lipase 232 U/L (8-78); Magnesium 2.1 mg/dL (1.6-2.6); Phosphorus 3.9 mg/dL (2.3-4.7); Potassium 3.9 mmol/L (3.5-5.1); Protein, Total 5.8 g/dL (6.0-8.3); Sodium 138 mmol/L (136-145); Troponin I 0.012 ng/mL (< 0.028)
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
--- NOTE | 2019-04-21 09:33 | OP ---
DATE OF PROCEDURE: 04/21/2019 PROCEDURE PERFORMED: Therapeutic bronchoscopy. INDICATION: Right upper lung atelectatic from mucus. POSTBRONCHOSCOPY DIAGNOSIS: Right upper lung atelectatic from mucus. DESCRIPTION OF PROCEDURE: Informed consent. The patient was sedated on Diprivan. Bite block in place. Using adapter and endotracheal tube, a flexible bronchoscope was passed. The distal trachea had large mucus impaction extending into the right mainstem bronchus, which was suctioned and lavaged until completely clear. Thereafter, the entire right lung was inspected, right upper, right middle, right lower lobe without any further endobronchial obstruction or blood or pus. The distal trachea and the gallo were sharp thereafter. This area was lavaged with normal saline 30 mL. The left lung was inspected thereafter, this was unremarkable. The mucosa was normal. was unremarkable. No endobronchial disease, blood, or pus was seen. This area was also lavaged with normal saline until it was completely clear. The patient tolerated the procedure well. Job ID: [id number]
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
[2019-04-21 11:13] LABS: Actual Bicarbonate (HCO3a) 25.9 mEq/L (22-28); Base Excess (BEa) 2.1 mEq/L (-2.0 to +3.0); CO2 Tension 37.2 mmHg (35.0-45.0); Carboxyhemoglobin (COHb) 0.2 gm% (0.0-3.0); O2 Tension (PaO2) 393.6 mmHg (80.0-100.0); Potassium - ABG Lab 3.74 mmol/L (3.70-5.30); pH, Arterial 7.46 (7.35-7.45)
[2019-04-21 11:14] LABS: Analyzer IN Cardio ER; Calcium, Ionized 1.12 mmol/L (1.12-1.30)
[2019-04-21 11:18] LABS: Puncture Site LINE
[2019-04-21 12:00] LABS: Bilirubin Negative (Negative); Blood, Urine Negative (Negative); Clarity Clear (Clear); Glucose, Urine (Dipstick) Normal (Negative); Leukocyte Negative Leu/uL (Negative); Nitrite Negative (Negative); Protein, Urine (Dipstick) 20 mg/dL (Neg-Trace)
[2019-04-21] MEDS ORDERED: Atropine Sulfate 1% Ophth Soln 5 ml Bottle PO PRN (12:22)
[2019-04-21] MEDS ORDERED: Morphine 4 MG/ML VIAL SLOW IVP PRN (12:22)
[2019-04-21 14:11] LABS: #Eosinphils 0.1 thou/uL (0.0-0.7); #Lymphocytes 1.1 thou/uL (1.20-3.40); #Monocytes 0.9 thou/uL (0.11-0.59); #Neutrophils 4.2 thou/uL (1.40-6.50); %Basophils 0.4 % (0.0-1.0); %Eosinophils 1.2 % (0.0-10.0); %Monocytes 14.6 % (0.0-10.0); %Neutrophils 66.8 % (42.0-75.0); Hemoglobin 9.9 g/dL (14.0-18.0); Mean Corpuscular HGB CONC 35.1 g/dL (32.0-36.0); Mean Corpuscular Hemoglobin 34.7 pg (27.0-31.0); Mean Corpuscular Volume 98.9 fL (78.0-98.0); Mean Platelet Volume 7.1 fL (7.4-10.4); Platelet Count 172 thou/uL (130-400); Red Blood Cell (RBC) Count 2.84 mill/uL (4.70-6.10); White Blood Cell (WBC) Count 6.4 thou/uL (4.8-10.8)
[2019-04-21 14:16] LABS: PTT 33.7 SEC (22.9-36.1); Prothrombin Time 13.4 SEC (12.0-14.7)
[2019-04-21 14:35] LABS: ALT (SGPT) 63 U/L (8-55); AST (SGOT) 69 U/L (5-34); Albumin 3.1 g/dL (3.5-5.0); Alkaline Phosphatase 75 U/L (40-110); Anion Gap 12 mmol/L (10-20); BUN (Urea Nitrogen) 5 mg/dL (8.9-20.6); Bilirubin, Total 0.3 mg/dL (0.2-1.2); Calc. Creatinine Clearance 161 mL/min (70-130); Calcium 8.4 mg/dL (7.8-10.44); Carbon Dioxide 25 mmol/L (22-29); Chloride 105 mmol/L (98-107); Estimated GFR-MDRD Greater than 90; Globulin 2.7 g/dL (2.4-3.5); Glucose 105 mg/dL (70-105); Lipase 425 U/L (8-78); Magnesium 2.5 mg/dL (1.6-2.6); Phosphorus 4.3 mg/dL (2.3-4.7); Potassium 4.3 mmol/L (3.5-5.1); Protein, Total 5.8 g/dL (6.0-8.3); Sodium 138 mmol/L (136-145)
--- NOTE | 2019-04-21 14:47 | RAD ---
PORTABLE CHEST: HISTORY: Respiratory distress. Organ donor. COMPARISON: Earlier exam of the same day. FINDINGS: The right upper lobe atelectatic lung changes have largely resolved. There is still a persistent api makayla pleural cap, but this appears smaller than on earlier exams. Left chest tube remains in place. Left lung appears well expanded. Endotracheal and NG tubes are in satisfactory position. IMPRESSION: Almost complete resolution of the right upper lobe atelectasis. POS: [facility]
[2019-04-21 14:57] LABS: Actual Bicarbonate (HCO3a) 26.1 mEq/L (22-28); Base Excess (BEa) 2.3 mEq/L (-2.0 to +3.0); CO2 Tension 37.3 mmHg (35.0-45.0); Calcium, Ionized 1.14 mmol/L (1.12-1.30); Hemoglobin (Hb) 9.8 g/dL (14.0-18.0); O2 Tension (PaO2) 493.6 mmHg (80.0-100.0); Potassium - ABG Lab 4.09 mmol/L (3.70-5.30); pH, Arterial 7.46 (7.35-7.45)
[2019-04-21 14:59] LABS: Puncture Site LINE
[2019-04-21 15:00] LABS: ALV-art Gradient 172.775 (0-20)
[2019-04-21] MEDS ORDERED: Morphine 10 MG/ML VIAL SLOW IVP PRN (15:03)
--- NOTE | 2019-04-21 15:08 | EKG ---
Test Reason : STAT Blood Pressure : / mmHG Vent. Rate : 082 BPM Atrial Rate : 082 BPM P-R Int : 138 ms QRS Dur : 082 ms QT Int : 386 ms P-R-T Axes : 071 051 -02 degrees QTc Int : 450 ms Normal sinus rhythm ST elevation, consider early repolarization, pericarditis, or injury Abnormal ECG Confirmed by MAGALI LANGSTON ([id number]) on 04/21/2019 3:08:12 PM Referred By: Omar CRUZ Confirmed By:MAGALI LANGSTON
--- NOTE | 2019-04-21 17:22 | RAD ---
PORTABLE CHEST: 04/21/19 HISTORY: Evaluation as a possible lung donor. COMPARISON: Exam done earlier today. Left chest tube remains in place. There is some atelectatic changes in the left base. Right upper lob e atelectasis shows some continued slight improvement. Apical pleural cap on the right is stable. IMPRESSION: Improvement to the right upper lobe atelectasis. POS: [facility]
[2019-04-21 19:06] LABS: Actual Bicarbonate (HCO3a) 26.3 mEq/L (22-28); Base Excess (BEa) 3.3 mEq/L (-2.0 to +3.0); CO2 Tension 33.7 mmHg (35.0-45.0); Calcium, Ionized 1.11 mmol/L (1.12-1.30); Carboxyhemoglobin (COHb) 0.3 gm% (0.0-3.0); Potassium - ABG Lab 3.88 mmol/L (3.70-5.30); pH, Arterial 7.51 (7.35-7.45)
[2019-04-21 19:12] LABS: ALV-art Gradient 158.575 (0-20); O2 Tension (PaO2) 512.3 mmHg (80.0-100.0); Puncture Site LINE
[2019-04-21 19:14] VITALS: BP 121/62
[2019-04-21 19:23] VITALS: TEMP 97.9
[2019-04-21 20:08] LABS: #Eosinphils 0.1 thou/uL (0.0-0.7); #Lymphocytes 1.3 thou/uL (1.20-3.40); #Monocytes 0.6 thou/uL (0.11-0.59); #Neutrophils 3.3 thou/uL (1.40-6.50); %Basophils 0.2 % (0.0-1.0); %Eosinophils 1.2 % (0.0-10.0); %Neutrophils 62.6 % (42.0-75.0); Mean Corpuscular HGB CONC 35.7 g/dL (32.0-36.0); Mean Corpuscular Hemoglobin 35.5 pg (27.0-31.0); Mean Corpuscular Volume 99.3 fL (78.0-98.0); Mean Platelet Volume 7.1 fL (7.4-10.4); Platelet Count 159 thou/uL (130-400); Red Blood Cell (RBC) Count 2.53 mill/uL (4.70-6.10); White Blood Cell (WBC) Count 5.3 thou/uL (4.8-10.8)
[2019-04-21 20:14] LABS: PTT 31.6 SEC (22.9-36.1); Prothrombin Time 13.5 SEC (12.0-14.7)
--- NOTE | 2019-04-21 20:20 | RAD ---
PORTABLE CHEST ONE VIEW: 04/21/19 at 7:39 p.m. HISTORY: Organ donor. FINDINGS/IMPRESSION: Comparison made with earlier exam of 4:17 p.m. from same date. Line and tube placements are unchanged in position. The heart size is stable. Mild atelectatic long e in the left lung base is again seen. Right apical pleural cap is stable. POS: OFF
[2019-04-21 20:27] LABS: ALT (SGPT) 66 U/L (8-55); AST (SGOT) 69 U/L (5-34); Albumin 2.9 g/dL (3.5-5.0); Alkaline Phosphatase 73 U/L (40-110); Anion Gap 11 mmol/L (10-20); BUN (Urea Nitrogen) 6 mg/dL (8.9-20.6); Bilirubin, Total 0.3 mg/dL (0.2-1.2); Calc. Creatinine Clearance 156 mL/min (70-130); Carbon Dioxide 26 mmol/L (22-29); Chloride 105 mmol/L (98-107); Estimated GFR-MDRD Greater than 90; Globulin 2.4 g/dL (2.4-3.5); Glucose 101 mg/dL (70-105); Lipase 313 U/L (8-78); Phosphorus 3.8 mg/dL (2.3-4.7); Potassium 3.8 mmol/L (3.5-5.1); Protein, Total 5.3 g/dL (6.0-8.3); Sodium 138 mmol/L (136-145)
[2019-04-21] MEDS: Lorazepam 100 ML IVPB SCH (20:28)
[2019-04-21 20:29] LABS: Troponin I Less than 0.010 ng/mL (< 0.028)
[2019-04-21] MEDS ORDERED: Heparin 5,000 UNITS/ML VIAL SLOW IVP SCH (20:30)
[2019-04-21] MEDS ORDERED: Magnesium Sulfate 4 GM in Sodium Chloride 0.9% 250 ML 250 ML IVPB SCH (21:45)
[2019-04-21 22:33] LABS: Troponin I Less than 0.010 ng/mL (< 0.028)
[2019-04-22 00:05] LABS: Actual Bicarbonate (HCO3a) 24.7 mEq/L (22-28); Base Excess (BEa) 1.4 mEq/L (-2.0 to +3.0); Calcium, Ionized 1.14 mmol/L (1.12-1.30); Carboxyhemoglobin (COHb) 0.3 gm% (0.0-3.0); Hemoglobin (Hb) 9.4 g/dL (14.0-18.0); O2 Tension (PaO2) 445.8 mmHg (80.0-100.0); Potassium - ABG Lab 4.38 mmol/L (3.70-5.30); pH, Arterial 7.48 (7.35-7.45)
--- NOTE | 2019-04-22 00:05 | CON ---
DATE OF CONSULTATION: 04/21/2019 Seth remains on ventilatory support. He has shown minimal effort for spontaneous breathing. He had an EEG done yesterday, which showed very low slow background. He had a burst of seizure activity, which began in the right hemisphere and became generalized. He was started back on his sedation. He has not had any further seizures since then. The family has discussed the situation with the transplant team and they have elected to have organ donation after . They are comfortable with the plan of care. Job ID: [id number]
[2019-04-22 00:09] LABS: Puncture Site LINE
[2019-04-22] MEDS: SODIUM CHLORIDE 0.9% IVPB SCH (00:29)
[2019-04-22] MEDS: LACOSAMIDE IVPB SCH (00:29)
[2019-04-22 00:32] LABS: #Eosinphils 0.1 thou/uL (0.0-0.7); #Lymphocytes 0.9 thou/uL (1.20-3.40); #Monocytes 0.9 thou/uL (0.11-0.59); #Neutrophils 4.1 thou/uL (1.40-6.50); %Basophils 0.2 % (0.0-1.0); %Eosinophils 1.3 % (0.0-10.0); %Lymphocytes 15.3 % (21.0-51.0); %Monocytes 14.6 % (0.0-10.0); %Neutrophils 68.5 % (42.0-75.0); Hemoglobin 9.7 g/dL (14.0-18.0); Mean Corpuscular HGB CONC 35.3 g/dL (32.0-36.0); Mean Corpuscular Hemoglobin 35.3 pg (27.0-31.0); Mean Corpuscular Volume 99.9 fL (78.0-98.0); Mean Platelet Volume 6.7 fL (7.4-10.4); Platelet Count 155 thou/uL (130-400); RBC Distribution Width 11.2 % (11.5-14.5); Red Blood Cell (RBC) Count 2.75 mill/uL (4.70-6.10)
[2019-04-22 00:34] LABS: Bilirubin Negative (Negative); Blood, Urine Negative (Negative); Clarity Clear (Clear); Glucose, Urine (Dipstick) Normal (Negative); Leukocyte Negative Leu/uL (Negative); Nitrite Negative (Negative); Protein, Urine (Dipstick) Negative (Neg-Trace); RBC/HPF 0-3 HPF (0-3); Squamous Epithelial None Seen HPF (0-3); Urobilinogen Normal mg/dL (Less than 2); WBC/HPF 0-3 HPF (0-3)
[2019-04-22 00:35] LABS: Bacteria/HPF Rare-Few HPF (None Seen)
[2019-04-22 00:36] LABS: Urine Culture Reflex No No
[2019-04-22 00:38] LABS: Prothrombin Time 13.3 SEC (12.0-14.7)
[2019-04-22 00:52] LABS: ALT (SGPT) 79 U/L (8-55); AST (SGOT) 85 U/L (5-34); Albumin 3.2 g/dL (3.5-5.0); Alkaline Phosphatase 82 U/L (40-110); Anion Gap 13 mmol/L (10-20); BUN (Urea Nitrogen) 5 mg/dL (8.9-20.6); Bilirubin, Total 0.3 mg/dL (0.2-1.2); Calc. Creatinine Clearance 146 mL/min (70-130); Calcium 8.4 mg/dL (7.8-10.44); Carbon Dioxide 27 mmol/L (22-29); Chloride 108 mmol/L (98-107); Estimated GFR-MDRD Greater than 90; Globulin 2.7 g/dL (2.4-3.5); Glucose 101 mg/dL (70-105); Magnesium 3.1 mg/dL (1.6-2.6); Phosphorus 4.3 mg/dL (2.3-4.7); Potassium 4.8 mmol/L (3.5-5.1); Protein, Total 5.9 g/dL (6.0-8.3); Sodium 143 mmol/L (136-145)
[2019-04-22] MEDS ORDERED: Diazepam 10 MG/2 ML SYRINGE IVP PRN (01:35)
--- NOTE | 2019-04-22 07:40 | RAD ---
Portable frontal chest radiograph: 04/22/2019 COMPARISON: 04/21/2019 HISTORY: Possible lung donor FINDINGS: Endotracheal tube and nasogastric tube in place. Catheter tubing curls over the left upper quadrant. Lateral left-sided chest tube in stable position. Left lung appears clear. There has been interval development of complete collapse of the right upper lobe with retraction of the hilum superi debbie on the right. IMPRESSION: Stable lines and tubes as detailed above. Interval complete collapse of right upper lobe.
--- NOTE | 2019-04-23 12:33 | DIS ---
DATE OF ADMISSION: 04/15/2019 DATE OF DISCHARGE: 04/22/2019 RESIDENT: Narayan Emerson DO. DATE OF : 04/22/2019. TIME OF : 0329 hours. CAUSE OF : Anoxic brain injury. SECONDARY DIAGNOSES: 1. Seizure disorder. 2. Transaminitis. 3. Thrombocytopenia. 4. Elevated troponins. 5. Cerebral palsy. 6. Bradycardia-tachycardia syndrome. HOSPITAL COURSE: This was a 24-year-old male with history as above, who presented to the ER via EMS after choking on a hot dog. The patient had history of cerebral palsy per family. The patient came in initially with myoclonic bursts. Poor prognosis to begin with. The patient was given 72 hours for recovery at that time. An EEG was done showing worsening prognosis. Neurology and Pulmonology consulted and agreed with plan. The patient was given antibiotics for possible aspiration pneumonia. The patient was then determined to have poor prognosis. Family elected to donate the patient's organs to other recipients. On the morning of the , the patient was brought to the OR, draped, and then extubated. The patient at the time stated above with family at bedside. Following that, the patient's organs were harvested by Transplant Team. Job ID: [id number]
--- NOTE | 2019-04-24 00:18 | PQF ---
CALDERON COKER ANNA MD [id number] CLINICAL DOCUMENTATION CLARIFICATION FORM: POST DISCHARGE Addendum to original discharge summary date: ____ Late entry note date: __ DATE:04/23/2019 ATTN: SNOW CRUZ MD Please exercise your independent, professional judgment in responding to the clarification form. Clinical indicators are provided on the bottom of this form for your review Please check appropriate box(s) to determine sequence of events: [ ] Cardiopulmonary arrest due to aspiration pneumonia [ ] Cardiopulmonary arrest due to Anoxic brain injury [ ] Cardiopulmonary arrest due to Acute hypoxic respiratory failure [ ] Cardiopulmonary arrest due to Seizure disorder [x ] Other diagnosis _Cardiopulmonary arrest secondary to asphyxia [ ] Unable to determine For continuity of documentation, please document condition throughout progress notes and discharge summary. Thank You. CLINICAL INDICATORS - SIGNS / SYMPTOMS / LABS Respiratory arrest s/p ROSC-Documented in H&P on 04/15 by Sriram Ortiz MD Respiratory arrest 2/2 aspiration w/obstruction s/p ROSC-Documented in H&P on by Sriram Ortiz MD Myoclonic jerking vs recurrent seizures/status epilepticus -Documented in H&P on 04/15 by Sriram Ortiz MD Pulseless electrical activity arrest-Documented in Consultation on 04/15 by Snow Cruz MD Aspiration of foreign body-Documented in Consultation on 04/15 by Snow Cruz MD Acute hypoxic respiratory failure -Documented in OP note 04/15 by Isaiah Dykes MD Cerebral palsy s/p chocking aspiration episode with cardiopulmonary arrest - Documented in Family medicine PN on 04/16 by Narayan Emerson DO RISKS: Aspiration of foreign body-Documented in Consultation on 04/15 by Snow Cruz MD Acute hypoxic respiratory failure -Documented in OP note 04/15 by Isaiah Dykes MD Cerebral palsy s/p chocking aspiration episode with cardiopulmonary arrest - Documented in Family medicine PN on 04/16 by Narayan Emerson DO Myoclonic jerking vs recurrent seizures/status epilepticus -Documented in H&P on 04/15 by Sriram Ortiz MD TREATMENT: Immediate initiation of CPR-Documented in H&P on 04/15 by Sriram Ortiz MD Removal of foreign body from airway (hot dog ), with posiibility of additional parts of hot dog further down-Documented in H&P on 04/15 by Sriram Ortiz MD Pulmonology consulted (Dr Dykes ) apperciate recs-Documented in H&P on 04/15 by Sriram Ortiz MD Fiberoptic bronchoscopy with visual airway inspection -Documented in OP note by Isaiah Dykes MD EEG this am preliminary unofficial report worrisome for marked anoxic brain injury -Documented in Family medicine PN on 04/16 by Narayan Emerson DO [employer] (This form is maintained as a part of the permanent medical record) 2014 [employer] All Rights Reserved [email or web address]
--- NOTE | 2019-05-02 20:32 | EKG ---
Test Reason : Blood Pressure : / mmHG Vent. Rate : 140 BPM Atrial Rate : 140 BPM P-R Int : 094 ms QRS Dur : 088 ms QT Int : 328 ms P-R-T Axes : 037 018 010 degrees QTc Int : 500 ms Sinus tachycardia with short VT Marked ST abnormality, possible inferior subendocardial injury Abnormal ECG Confirmed by ELSA AMAYA D.O. ([id number]), business editor STACIA UMAÑA ([id number]) on 05/02/2019 8:31:22 PM Referred By: Confirmed By:ELSA AMAYA D.O.
== END 2019-04-22 05:00 | disposition expired | DRG 208 ==
LOC: ERS 17:48 → CCU 20:27
PROVIDERS: ADMIT Family Medicine; ATTEND Family Medicine
PROC: 0BJ08ZZ Inspection of Tracheobronchial Tree, Via Natural or Artificial Opening Endoscopic (ICD-10-PCS; principal; 2019-04-15)
PROC: 5A1945Z Respiratory Ventilation, 24-96 Consecutive Hours (ICD-10-PCS; 2019-04-15)
PROC: 0BJ08ZZ Inspection of Tracheobronchial Tree, Via Natural or Artificial Opening Endoscopic (ICD-10-PCS; 2019-04-20)
PROC: 02HV33Z Insertion of Infusion Device into Superior Vena Cava, Percutaneous Approach (ICD-10-PCS; 2019-04-20)
PROC: 0W9B30Z Drainage of Left Pleural Cavity with Drainage Device, Percutaneous Approach (ICD-10-PCS; 2019-04-20)
PROC: 06HY33Z Insertion of Infusion Device into Lower Vein, Percutaneous Approach (ICD-10-PCS; 2019-04-20)
PROC: 0B9F8ZX Drainage of Right Lower Lung Lobe, Via Natural or Artificial Opening Endoscopic, Diagnostic (ICD-10-PCS; 2019-04-21)
PROC: 0BC18ZZ Extirpation of Matter from Trachea, Via Natural or Artificial Opening Endoscopic (ICD-10-PCS; 2019-04-21)
DX: J96.01 Acute respiratory failure with hypoxia (principal); J95.811 Postprocedural pneumothorax; K72.00 Acute and subacute hepatic failure without coma; J69.0 Pneumonitis due to inhalation of food and vomit; G93.1 Anoxic brain damage, not elsewhere classified; Z66 Do not resuscitate; Z51.5 Encounter for palliative care; I46.8 Cardiac arrest due to other underlying condition; G40.909 Epilepsy, unspecified, not intractable, without status epilepticus; G80.9 Cerebral palsy, unspecified; I49.5 Sick sinus syndrome; F79 Unspecified intellectual disabilities; R79.89 Other specified abnormal findings of blood chemistry; D69.6 Thrombocytopenia, unspecified; Y83.8 Other surgical procedures as the cause of abnormal reaction of the patient, or of later complication, without mention of misadventure at the time of the procedure; Z98.2 Presence of cerebrospinal fluid drainage device; Z88.1 Allergy status to other antibiotic agents; Z88.8 Allergy status to other drugs, medicaments and biological substances; Z88.0 Allergy status to penicillin; Z52.89 Donor of other specified organs or tissues
CPT/HCPCS: 36415; 36416; 51702; 70450; 71045; 71250; 74177; 80053; 80156; 80164; 80185; 81001; 81003; 82150; 82248; 82550; 82553; 82805; 82977; 83036; 83605; 83690; 83735; 84100; 84484; 85007; 85025; 85027; 85610; 85730; 86850; 86900; 86901; 87040; 87086; 87205; 93005; 93010; 93306; 94003; 94640; 94760; 95816; 95819; 96365; 96374; 96375; 99292; J0295; J0610; J1265; J1650; J1953; J2001; J2060; J2270; J2704; J3010; J3475; J3480; J3490; J7050; J7611; P9045; S0028